=== PATIENT | female | born 1960 | race Caucasian/White ===

== ENCOUNTER 2017-01-11 15:19 | Observation (INO) | payer MEDICARE, OTHER ==
[~2017-01-11] VITALS: Ht 175.3 cm; Wt 120.0 kg
[~2017-01-11 15:19] MED LIST: ASPI81 PO; BENZ1TAB PO; LAMO100 PO; LEVO88TA2 PO; LEXA20TA PO; MOBI15TA PO; RANI150C PO; TRAZ50TA4 PO
[2017-01-11] MEDS ORDERED: SODIUM CHLORIDE 0.9% FLUSH 5 ML FLUSH IV FLUSH PRN (17:00)
[2017-01-11 17:05] VITALS: BP 143/61; PULSE 92; RESP 26; TEMP 97.6; O2SAT 98
--- NOTE | 2017-01-11 17:07 | PD ---
HPI Chief Complaint: altered mental status Time Seen by Provider: 16:40 Travel History International Travel<30 days: No Contact w/Intl Traveler<30days: No History of Present Illness HPI 56-year-old female presents with report of altered mental status. Patient per records has autism and mental retardation and is nonverbal but staff thought that she was acting different per report. Patient cannot provide me any history PFSH Past Medical History Narrative Medical By records Hx Anticoagulant Therapy: No Autoimmune Disease: No Anxiety: Yes Cardiovascular Problems: No Chemotherapy: No Cerebrovascular Accident: No Developmental Delay: Yes Diabetes: No Endocrine: No Genitourinary: Yes (INCONTINENT) Immune Disorder: No Musculoskeletal: No Neurologic: Yes (AUTISTIC, OCD) Psychiatric: Yes (AUTISM, OBSESSIVE COMPULSIVE) Respiratory: No Immunizations Current: Yes Thyroid Disease: Yes PNEUMOCCOCAL Vaccine (Year): 3 Past Surgical History Narrative Surgical By records Abdominal Surgery: Yes (CHOLECYSTECTOMY) Cholecystectomy: Yes Gynecologic Surgery: Yes (HYSTERECTOMY) Hysterectomy: Yes Oral Surgery: Yes Other Surgery: Yes Social History Narrative Social History By records Alcohol Use: No Tobacco Use: No Substance Use: No Allergies-Medications (Allergen,Severity, Reaction): Coded Allergies: orange (Unverified Allergy, Severe, Itching, 01/03/17) Uncoded Allergies: ORANGE JUICE (Allergy, Severe, Itching, 12/22/08) Reported Meds & Prescriptions Reported Meds & Active Scripts Active Reported Desyrel 50 Mg Tab (Trazodone Hcl) 50 Mg Tab 75 Mg PO HS Cogentin (Benztropine Mesylate) 1 Mg Tab 1 Mg PO HS Mobic (Meloxicam) 15 Mg Tab 15 Mg PO DAILY Aspirin 81 Mg Tab 81 Mg PO DAILY Levothyroxine 88 mcg (Levothyroxine Sodium) 88 Mcg Tab 88 Mcg PO DAILY Lamictal (Lamotrigine) 100 Mg Tab 100 Mg PO BID Lexapro (Escitalopram Oxalate) 20 Mg Tab 20 Mg PO DAILY Zantac (Ranitidine HCl) 150 Mg Cap 150 Mg PO HS Review of Systems ROS Limitations: Poor Historian Physical Exam Exam Limitations: Poor Historian Narrative GENERAL: Appears in no distress SKIN: Warm and dry. HEAD: atraumatic. EYES: No injection or drainage. Pupils equal ENT: No nasal drainage noted. NECK: Supple, trachea midline. CARDIOVASCULAR: Regular rate and rhythm RESPIRATORY: Breath sounds equal bilaterally at apices. No accessory muscle use. GASTROINTESTINAL: Abdomen soft, nondistended. NEUROLOGICAL: Eyes open, contractures noted, appears to try to state her name when asked but comes out more as a mumble question baseline Data Data Last Documented VS Vital Signs Date Time Temp Pulse Resp B/P (MAP) Pulse Ox O2 Delivery O2 Flow Rate FiO2 01/11/17 18:13 99 Room Air 01/11/17 17:05 97.6 92 26 143/61 (88) Orders Orders Electrocardiogram (01/11/17 16:46) Complete Blood Count With Diff (01/11/17 16:46) Comprehensive Metabolic Panel (01/11/17 16:46) Prothrombin Time / Inr (Pt) (01/11/17 16:46) Act Partial Throm Time (Ptt) (01/11/17 16:46) Urinalysis - C+S If Indicated (01/11/17 16:46) Ct Brain W/O Iv Contrast(Rout) (01/11/17 16:46) Blood Glucose (01/11/17 16:46) Ecg Monitoring (01/11/17 16:46) Iv Access Insert/Monitor (01/11/17 16:46) Oximetry (01/11/17 16:46) Sodium Chloride 0.9% Flush (Ns Flush) (01/11/17 17:00) Chest, Single Ap (01/11/17 ) Lactic Acid Sepsis Protocol (01/11/17 17:17) Blood Culture (01/11/17 17:17) Urine Culture (01/11/17 17:10) Ceftriaxone Inj (Rocephin Inj) (01/11/17 19:00) Labs Laboratory Tests Test 01/11/17 17:10 01/11/17 17:55 01/11/17 18:00 Urine Color YELLOW Urine Turbidity HAZY Urine pH 5.5 Urine Specific [place] 1.028 Urine Protein 100 mg/dL Urine Glucose (UA) NEG mg/dL Urine Ketones 10 mg/dL Urine Occult Blood MOD Urine Nitrite NEG Urine Bilirubin NEG Urine Urobilinogen 2.0 MG/DL Urine Leukocyte Esterase LARGE Urine RBC 7 /hpf Urine WBC 6 /hpf Urine Bacteria MOD /hpf Microscopic Urinalysis Comment CATH-CULTURE IND White Blood Count 10.7 TH/MM3 Red Blood Count 4.34 MIL/MM3 Hemoglobin 12.3 GM/DL Hematocrit 37.7 % Mean Corpuscular Volume 87.0 FL Mean Corpuscular Hemoglobin 28.3 PG Mean Corpuscular Hemoglobin Concent 32.6 % Red Cell Distribution Width 14.2 % Platelet Count 350 TH/MM3 Mean Platelet Volume 8.1 FL Neutrophils (%) (Auto) 91.5 % Lymphocytes (%) (Auto) 5.6 % Monocytes (%) (Auto) 2.2 % Eosinophils (%) (Auto) 0.0 % Basophils (%) (Auto) 0.7 % Neutrophils # (Auto) 9.8 TH/MM3 Lymphocytes # (Auto) 0.6 TH/MM3 Monocytes # (Auto) 0.2 TH/MM3 Eosinophils # (Auto) 0.0 TH/MM3 Basophils # (Auto) 0.1 TH/MM3 CBC Comment DIFF FINAL Differential Comment Alanine Aminotransferase (ALT/SGPT) 23 U/L Lactic Acid Level 1.1 mmol/L MDM Medical Decision Making Medical Screen Exam Complete: Yes Emergency Medical Condition: Yes Medical Record Reviewed: Yes (past history confirmed) Differential Diagnosis Hypoglycemia, UTI, hyponatremia, intercranial Narrative Course Will check altered mental status workup and if normal can return as she appears to be near baseline described but difficult to ascertain ED workup with urinary tract infection, antibiotics ordered and will be admitted for further care Physician Communication Physician Communication dr kuo to follow labs and admit Diagnosis Primary Impression: UTI (urinary tract infection) Qualified Codes: N39.0 - Urinary tract infection, site not specified Additional Impression: Altered mental status Qualified Codes: R41.82 - Altered mental status, unspecified Ivett Preston MD Jan 11, 2017 17:07
--- NOTE | 2017-01-11 17:44 | RADRPT ---
EXAM DATE/TIME: 01/11/2017 17:28 [facility] COMPARISON: No previous studies available for comparison. INDICATIONS : Chest palpitations. MEDICAL HISTORY : Autism. SURGICAL HISTORY : Cholecystectomy. Hysterectomy. ENCOUNTER: Initial ACUITY: 1 day PAIN SCORE: Non-responsive. LOCATION: Bilateral chest FINDINGS: A single portable frontal view the chest shows the patient obliqued towards the right. Hypoinflation noted. No discrete infiltrate or effusion. Heart normal size. Surgical clips within the right upper q uadrant. CONCLUSION: No acute disease. Bradford Maldonado Jr., MD on January 11, 2017 at 17:42 Board Certified Radiologist. This report was verified electronically.
[2017-01-11 17:46] LABS: BACTERIA, URINE MOD /hpf; BLOOD, URINE MOD (NEG); COMMENT (UR) CATH-CULTURE IND; CULTURE IF INDICATED CATH CULTURE IND; GLUCOSE,URINE NEG (NEG); KETONE, URINE 10 mg/dL (NEG); NITRITE,URINE NEG (NEG); PH, URINE 5.5 (5.0-8.5); URINE COLOR YELLOW (YELLW/STRAW)
--- NOTE | 2017-01-11 17:48 | RADRPT ---
EXAM DATE/TIME: 01/11/2017 17:38 [facility] COMPARISON: CT BRAIN W/O CONTRAST, December 29, 2014, 14:37. INDICATIONS : Altered mental status. RADIATION DOSE: 38.52 CTDIvol (mGy) MEDICAL HISTORY : Autistic SURGICAL HISTORY : Cholecystectomy. Hysterectomy. ENCOUNTER: Initial ACUITY: 1 day PAIN SCALE: 0/10 LOCATION: cranial TECHNIQUE: Multiple contiguous axial images were obtained of the head. Using automated exposure control and adj ustment of the mA and/or kV according to patient size, radiation dose was kept as low as reasonably a chievable to obtain optimal diagnostic quality images. DICOM format image data is available electro nically for review and comparison. FINDINGS: CEREBRUM: The ventricles are normal for age. No evidence of midline shift, mass lesion, hemorrhage or acute in farction. No extra-axial fluid collections are seen. POSTERIOR FOSSA: The cerebellum and brainstem are intact. The 4th ventricle is midline. The cerebellopontine angle i s unremarkable. EXTRACRANIAL: The visualized portion of the orbits is intact. SKULL: The calvaria is intact. No evidence of skull fracture. CONCLUSION: Normal examination. Miguel Angel Arreola MD on January 11, 2017 at 17:46 Board Certified Radiologist. This report was verified electronically.
[2017-01-11 18:13] VITALS: O2SAT 99
[2017-01-11 18:26] LABS: AUTOMATED NEUTROPHIL # 9.8 TH/MM3 (1.8-7.7); BASOPHIL # 0.1 TH/MM3 (0-0.2); BASOPHIL % 0.7 % (0.0-2.0); HEMATOCRIT 37.7 % (35.0-46.0); HEMO FLAGS DIFF FINAL; LYMPH % 5.6 % (9.0-44.0); LYMPHOCYTE # 0.6 TH/MM3 (1.0-4.8); MEAN CORPUSCULAR HEMOGLOBIN 28.3 PG (27.0-34.0); MEAN CORPUSCULAR HGB CONC 32.6 % (32.0-36.0); MONO % 2.2 % (0.0-8.0); NEUT % 91.5 % (16.0-70.0); PLATELET COUNT 350 TH/MM3 (150-450); RED BLOOD COUNT 4.34 MIL/MM3 (4.00-5.30); RED CELL DISTRIBUTION WIDTH 14.2 % (11.6-17.2); WHITE BLOOD COUNT 10.7 TH/MM3 (4.0-11.0)
[2017-01-11 18:57] LABS: ALT (GPT) 23 U/L (10-53)
[2017-01-11 18:59] LABS: ALKALINE PHOSPHATASE 101 U/L (45-117); TOTAL BILIRUBIN ADULT 0.3 MG/DL (0.2-1.0)
[2017-01-11] MEDS ORDERED: cefTRIAXone INJ 1,000 MG in SODIUM CHLORIDE 0.9% INJ 100 ML IV ONE (19:00)
[2017-01-11 19:03] LABS: ANION GAP 9 MEQ/L (5-15); AST (GOT) 48 U/L (15-37); BICARBONATE 24.2 MEQ/L (21.0-32.0); BLOOD UREA NITROGEN 13 MG/DL (7-18); CHLORIDE 105 MEQ/L (98-107); GLOMERULAR FILTRATION RATE 56 ML/MIN (>89); SODIUM (NA) 138 MEQ/L (136-145)
[2017-01-11 19:05] LABS: POTASSIUM 4.4 MEQ/L (3.5-5.1)
[2017-01-11 19:22] VITALS: BP 128/94; PULSE 87; RESP 16; O2SAT 94
--- NOTE | 2017-01-11 19:24 | PD ---
Physical Exam Date Seen by Provider: Jan 11, 2017 Time Seen by Provider: 19:17 Narrative The patient is a 56-year-old female with a history of autism who was evaluated by the previous physician, Dr. Preston. Please refer to initial history, physical , diagnostic evaluation, and treatment modality plan. The patient was signed out at 7 PM with CMP pending, previous physician recommends observation/ admission for increasing altered mental status with UTI. Data Data Last Documented VS Vital Signs Date Time Temp Pulse Resp B/P (MAP) Pulse Ox O2 Delivery O2 Flow Rate FiO2 01/11/17 18:13 99 Room Air 01/11/17 17:05 97.6 92 26 143/61 (88) Orders Orders Electrocardiogram (01/11/17 16:46) Complete Blood Count With Diff (01/11/17 16:46) Comprehensive Metabolic Panel (01/11/17 16:46) Prothrombin Time / Inr (Pt) (01/11/17 16:46) Act Partial Throm Time (Ptt) (01/11/17 16:46) Urinalysis - C+S If Indicated (01/11/17 16:46) Ct Brain W/O Iv Contrast(Rout) (01/11/17 16:46) Blood Glucose (01/11/17 16:46) Ecg Monitoring (01/11/17 16:46) Iv Access Insert/Monitor (01/11/17 16:46) Oximetry (01/11/17 16:46) Sodium Chloride 0.9% Flush (Ns Flush) (01/11/17 17:00) Chest, Single Ap (01/11/17 ) Lactic Acid Sepsis Protocol (01/11/17 17:17) Blood Culture (01/11/17 17:17) Urine Culture (01/11/17 17:10) Ceftriaxone Inj (Rocephin Inj) (01/11/17 19:00) Labs Laboratory Tests Test 01/11/17 17:10 01/11/17 17:55 01/11/17 18:00 Urine Color YELLOW Urine Turbidity HAZY Urine pH 5.5 Urine Specific [place] 1.028 Urine Protein 100 mg/dL Urine Glucose (UA) NEG mg/dL Urine Ketones 10 mg/dL Urine Occult Blood MOD Urine Nitrite NEG Urine Bilirubin NEG Urine Urobilinogen 2.0 MG/DL Urine Leukocyte Esterase LARGE Urine RBC 7 /hpf Urine WBC 6 /hpf Urine Bacteria MOD /hpf Microscopic Urinalysis Comment CATH-CULTURE IND White Blood Count 10.7 TH/MM3 Red Blood Count 4.34 MIL/MM3 Hemoglobin 12.3 GM/DL Hematocrit 37.7 % Mean Corpuscular Volume 87.0 FL Mean Corpuscular Hemoglobin 28.3 PG Mean Corpuscular Hemoglobin Concent 32.6 % Red Cell Distribution Width 14.2 % Platelet Count 350 TH/MM3 Mean Platelet Volume 8.1 FL Neutrophils (%) (Auto) 91.5 % Lymphocytes (%) (Auto) 5.6 % Monocytes (%) (Auto) 2.2 % Eosinophils (%) (Auto) 0.0 % Basophils (%) (Auto) 0.7 % Neutrophils # (Auto) 9.8 TH/MM3 Lymphocytes # (Auto) 0.6 TH/MM3 Monocytes # (Auto) 0.2 TH/MM3 Eosinophils # (Auto) 0.0 TH/MM3 Basophils # (Auto) 0.1 TH/MM3 CBC Comment DIFF FINAL Differential Comment Blood Urea Nitrogen 13 MG/DL Creatinine 1.02 MG/DL Random Glucose 138 MG/DL Total Protein 7.2 GM/DL Albumin 2.6 GM/DL Calcium Level 8.3 MG/DL Alkaline Phosphatase 101 U/L Aspartate Amino Transf (AST/SGOT) 48 U/L Alanine Aminotransferase (ALT/SGPT) 23 U/L Total Bilirubin 0.3 MG/DL Sodium Level 138 MEQ/L Potassium Level 4.4 MEQ/L Chloride Level 105 MEQ/L Carbon Dioxide Level 24.2 MEQ/L Anion Gap 9 MEQ/L Estimat Glomerular Filtration Rate 56 ML/MIN Lactic Acid Level 1.1 mmol/L [facility] Medical Record Reviewed: Yes Supervised Visit with RAPHAEL: No Interpretation(s) Last Impressions Head CT 01/11/17 1646 Signed Impressions: Service Date/Time: Wednesday, January 11, 2017 17:38 - CONCLUSION: Normal examination. Miguel Angel Arreola MD Chest X-Ray 01/11/17 0000 Signed Impressions: Service Date/Time: Wednesday, January 11, 2017 17:28 - CONCLUSION: No acute disease. Bradford Maldonado Jr., MD Laboratory Tests Test 01/11/17 17:10 01/11/17 17:55 01/11/17 18:00 Urine Color YELLOW Urine Turbidity HAZY Urine pH 5.5 Urine Specific [place] 1.028 Urine Protein 100 mg/dL Urine Glucose (UA) NEG mg/dL Urine Ketones 10 mg/dL Urine Occult Blood MOD Urine Nitrite NEG Urine Bilirubin NEG Urine Urobilinogen 2.0 MG/DL Urine Leukocyte Esterase LARGE Urine RBC 7 /hpf Urine WBC 6 /hpf Urine Bacteria MOD /hpf Microscopic Urinalysis Comment CATH-CULTURE IND White Blood Count 10.7 TH/MM3 Red Blood Count 4.34 MIL/MM3 Hemoglobin 12.3 GM/DL Hematocrit 37.7 % Mean Corpuscular Volume 87.0 FL Mean Corpuscular Hemoglobin 28.3 PG Mean Corpuscular Hemoglobin Concent 32.6 % Red Cell Distribution Width 14.2 % Platelet Count 350 TH/MM3 Mean Platelet Volume 8.1 FL Neutrophils (%) (Auto) 91.5 % Lymphocytes (%) (Auto) 5.6 % Monocytes (%) (Auto) 2.2 % Eosinophils (%) (Auto) 0.0 % Basophils (%) (Auto) 0.7 % Neutrophils # (Auto) 9.8 TH/MM3 Lymphocytes # (Auto) 0.6 TH/MM3 Monocytes # (Auto) 0.2 TH/MM3 Eosinophils # (Auto) 0.0 TH/MM3 Basophils # (Auto) 0.1 TH/MM3 CBC Comment DIFF FINAL Differential Comment Blood Urea Nitrogen 13 MG/DL Creatinine 1.02 MG/DL Random Glucose 138 MG/DL Total Protein 7.2 GM/DL Albumin 2.6 GM/DL Calcium Level 8.3 MG/DL Alkaline Phosphatase 101 U/L Aspartate Amino Transf (AST/SGOT) 48 U/L Alanine Aminotransferase (ALT/SGPT) 23 U/L Total Bilirubin 0.3 MG/DL Sodium Level 138 MEQ/L Potassium Level 4.4 MEQ/L Chloride Level 105 MEQ/L Carbon Dioxide Level 24.2 MEQ/L Anion Gap 9 MEQ/L Estimat Glomerular Filtration Rate 56 ML/MIN Lactic Acid Level 1.1 mmol/L Differential Diagnosis Differential diagnosis includes medication reaction, medication side effect, UTI , delirium, hyponatremia, intracranial hemorrhage, pneumonia, meningitis, encephalitis. Narrative Course The patient was initially evaluated by the previous physician, Dr. Preston. Please refer to the initial history, physical, diagnostic evaluation, and treatment modality plan. The patient's UA revealed 30 PVCs with leukocyte esterase, CT the brain and chest x-ray are unremarkable. The patient was administered Rocephin. We call the assisted living facility, there was no answer, we are unsure of what medications the patient was sedated with. According to paperwork the patient is normally cooperative, nonverbal, but was altered and slightly aggressive earlier today. Therefore, the patient will be 23 hour observation to the chest pain Center. Physician Communication Physician Communication I discussed the patient with Dr. Ramirez who agrees with 23 hour observation. Diagnosis Primary Impression: UTI (urinary tract infection) Qualified Codes: N39.0 - Urinary tract infection, site not specified Additional Impression: Altered mental status Qualified Codes: R41.82 - Altered mental status, unspecified Admitting Information Admitting Physician Requests: Observation Condition: Stable Marshall Mendoza MD Jan 11, 2017 19:24
[2017-01-11] MEDS ORDERED: ACETAMINOPHEN 325 MG TAB PO PRN (19:30)
[2017-01-11] MEDS ORDERED: ONDANSETRON HCL 4 MG/2 ML VIAL IVP PRN (19:30)
[2017-01-11] MEDS ORDERED: SODIUM CHLORIDE 0.9% FLUSH 10 ML FLUSH IV FLUSH PRN (19:30)
[2017-01-11] MEDS ORDERED: NALOXONE HCL 0.4 MG/ML AMP IV PRN (19:30)
[2017-01-11] MEDS ORDERED: LEVO125T4 PO (19:35)
[2017-01-11] MEDS ORDERED: ZYPR15TA PO (19:35)
[2017-01-11] MEDS ORDERED: GEOD60CA PO (19:35)
[2017-01-11] MEDS ORDERED: LAMI200T PO (19:35)
[2017-01-11] MEDS ORDERED: TRAZ50TA12 PO (19:35)
[2017-01-11] MEDS ORDERED: BENZ0.5T PO (19:35)
[2017-01-11] MEDS ORDERED: MOBI15TA PO (19:35)
[2017-01-11] MEDS ORDERED: ZANT300T PO (19:35)
[2017-01-11] MEDS ORDERED: LEXA20TA PO (19:35)
[2017-01-11] MEDS ORDERED: ASPI1TAB91 PO (19:35)
[2017-01-11 20:29] LABS: APTT (PATIENT) 24.1 SEC (24.3-30.1); PROTHROMBIN TIME - PATIENT 10.7 SEC (9.8-11.6)
[2017-01-11] MEDS: SODIUM CHLORIDE 0.9% FLUSH 10 ML FLUSH IV FLUSH SCH (22:05)
--- NOTE | 2017-01-11 23:26 | HHI.HP ---
[facility] Unknown Admission Diagnosis altered mental status, autism, UTI Diagnoses: (1) Altered mental status (2) UTI (urinary tract infection) Chief Complaint: Per [facility] paperwork: AMS, agitation requiring medication sedation Travel History International Travel<30 Days: No Contact w/Intl Traveler <30 Da: No Traveled to Known Affected Are: No History of Present Illness Written by Marti Rayo, acting as scribe for Dr. Ramirez on 01/11/17 at 23:26. Patient is seen in the CDU. She is alert with minimal eye contact and does not answer any questions. Per [facility] paperwork: AMS, agitation requiring medication sedation - uncertain what type of sedation was utilized. . Review of Systems ROS Limitations: Uncooperative Unable to obtain - patient would not communicate with examiner . Past Family Social History Past Medical History Per EMR and [facility] records: Autism Mental retardation OCD Anxiety Hypothyroidism . Past Surgical History Per EMR and [facility] records: Oral surgery Cholecystectomy Hysterectomy . . Reported Medications Reported Meds & Active Scripts Active Reported Geodon (Ziprasidone) 60 Mg Cap 60 Mg PO HS Trazodone (Trazodone HCl) 50 Mg Tab 75 Mg PO HS Zantac (Ranitidine HCl) 300 Mg Tab 300 Mg PO DAILY Zyprexa (Olanzapine) 15 Mg Tab 15 Mg PO HS Mobic (Meloxicam) 15 Mg Tab 15 Mg PO DAILY Levothyroxine (Levothyroxine Sodium) 125 Mcg Tab 125 Mcg PO DAILY Lamictal (Lamotrigine) 200 Mg Tab 200 Mg PO BID Lexapro (Escitalopram Oxalate) 20 Mg Tab 20 Mg PO DAILY Benztropine (Benztropine Mesylate) 0.5 Mg Tab 2 Mg PO BID Aspirin Adult Low Strength (Aspirin) 81 Mg Tabdr 81 Mg PO DAILY . Allergies: Coded Allergies: orange (Unverified Allergy, Severe, Itching, 01/03/17) Uncoded Allergies: ORANGE JUICE (Allergy, Severe, Itching, 12/22/08) Active Ordered Medications Current Medications IV Flush (NS Flush) 2 ml UNSCH PRN IV FLUSH FLUSH AFTER USING IV ACCESS Last administered on 01/11/17 19:28; Start 01/11/17 at 17:00; Stop 01/11/17 at 21:50 ; Status DC Ceftriaxone Sodium 1000 mg/ Sodium Chloride 100 ml @ 200 mls/hr ONCE ONCE IV Last administered on 01/11/17 19:27; Start 01/11/17 at 19:00; Stop 01/11/17 at 19:29; Status DC Sodium Chloride (NS Flush) 2 ml UNSCH PRN IV FLUSH FLUSH AFTER USING IV ACCESS ; Start 01/11/17 at 19:30 Sodium Chloride (NS Flush) 2 ml BID IV FLUSH Last administered on 01/11/17 22: 05; Start 01/11/17 at 21:00 Acetaminophen (Tylenol) 650 mg Q4H PRN PO TEMP > 100.4; Start 01/11/17 at 19:30 Ondansetron HCl (Zofran Inj) 4 mg Q6H PRN IVP NAUSEA OR VOMITING; Start at 19:30 Naloxone HCl (Narcan Inj) 0.4 mg UNSCH PRN IV SEE LABEL COMMENTS; Start at 19:30 . Family History Unable to obtain - patient would not communicate with examiner . Social History Unable to obtain - patient would not communicate with examiner . Physical Exam Vital Signs Vital Signs Date Time Temp Pulse Resp B/P (MAP) Pulse Ox O2 Delivery O2 Flow Rate FiO2 01/11/17 20:56 01/11/17 19:22 87 16 128/94 (105) 94 Room Air 01/11/17 18:13 99 Room Air 01/11/17 18:08 Room Air 01/11/17 17:05 97.6 92 26 143/61 (88) 98 Physical Exam GENERAL: This is an obese, non-interactive autistic patient, in no apparent distress. Does not make eye contact. SKIN: No rashes. Cool and dry. HEAD: Atraumatic. Normocephalic. EYES: No scleral icterus. No injection or drainage. ENT: Nose without bleeding, purulent drainage. NECK: Trachea midline. No JVD. CARDIOVASCULAR: Regular rate and rhythm without murmurs, gallops, or rubs. RESPIRATORY: Clear to auscultation. Breath sounds equal bilaterally. No wheezes , rales, or rhonchi. GASTROINTESTINAL: Abdomen soft, nondistended. No guarding. May have some pain with palpation - grimaced a little - difficult to evaluate given developmental impairments. MUSCULOSKELETAL: Extremities without clubbing, cyanosis. No calf tenderness. NEUROLOGICAL: Awake and alert. Unable to obtain complete exam as patient would not communicate with examiner and would not follow directions. . Laboratory Laboratory Tests Test 01/11/17 17:10 01/11/17 17:55 01/11/17 18:00 01/11/17 19:28 Urine Color YELLOW Urine Turbidity HAZY Urine pH 5.5 Urine Specific [place] 1.028 Urine Protein 100 Urine Glucose (UA) NEG Urine Ketones 10 Urine Occult Blood MOD Urine Nitrite NEG Urine Bilirubin NEG Urine Urobilinogen 2.0 Urine Leukocyte Esterase LARGE Urine RBC 7 Urine WBC 6 Urine Bacteria MOD Microscopic Urinalysis Comment CATH-CULTURE IND White Blood Count 10.7 Red Blood Count 4.34 Hemoglobin 12.3 Hematocrit 37.7 Mean Corpuscular Volume 87.0 Mean Corpuscular Hemoglobin 28.3 Mean Corpuscular Hemoglobin Concent 32.6 Red Cell Distribution Width 14.2 Platelet Count 350 Mean Platelet Volume 8.1 Neutrophils (%) (Auto) 91.5 Lymphocytes (%) (Auto) 5.6 Monocytes (%) (Auto) 2.2 Eosinophils (%) (Auto) 0.0 Basophils (%) (Auto) 0.7 Neutrophils # (Auto) 9.8 Lymphocytes # (Auto) 0.6 Monocytes # (Auto) 0.2 Eosinophils # (Auto) 0.0 Basophils # (Auto) 0.1 CBC Comment DIFF FINAL Differential Comment Blood Urea Nitrogen 13 Creatinine 1.02 Random Glucose 138 Total Protein 7.2 Albumin 2.6 Calcium Level 8.3 Alkaline Phosphatase 101 Aspartate Amino Transf (AST/SGOT) 48 Alanine Aminotransferase (ALT/SGPT) 23 Total Bilirubin 0.3 Sodium Level 138 Potassium Level 4.4 Chloride Level 105 Carbon Dioxide Level 24.2 Anion Gap 9 Estimat Glomerular Filtration Rate 56 Thyroid Stimulating Hormone 3rd Gen 0.202 Lactic Acid Level 1.1 Prothrombin Time 10.7 Prothromb Time International Ratio 1.0 Activated Partial Thromboplast Time 24.1 Date/Time Source Procedure Growth Status 01/11/17 18:00 Blood Peripheral Aerobic Blood Culture Pending Received 01/11/17 18:00 Blood Peripheral Anaerobic Blood Culture Pending Received 01/11/17 17:10 Urine Clean Catch Urine Culture Pending Worksheet Result Diagram: 01/11/17 1755 01/11/17 1755 Imaging Last Impressions Head CT 01/11/17 1646 Signed Impressions: Service Date/Time: Wednesday, January 11, 2017 17:38 - CONCLUSION: Normal examination. Miguel Angel Arreola MD Chest X-Ray 01/11/17 0000 Signed Impressions: Service Date/Time: Wednesday, January 11, 2017 17:28 - CONCLUSION: No acute disease. MD Onelia Hernandez Jr. VTE Risk Assessment Caprini VTE Risk Assessment: Mod/High Risk (score >= 2) Caprini Risk Assessment Model Point Value = 1 Point Value = 2 Point Value = 3 Point Value = 5 Age 41-60 Minor surgery BMI > 25 kg/m2 Swollen legs Varicose veins or History of unexplained or recurrent spontaneous Oral contraceptives or hormone replacement Sepsis (< 1 month) Serious lung disease, including pneumonia (< 1 month) Abnormal pulmonary function Acute myocardial infarction Congestive heart failure (< 1 month) History of inflammatory bowel disease Medical patient at bed rest Age 61-74 Arthroscopic surgery Major open surgery (> 45 min) Laparoscopic surgery (> 45 min) Malignancy Confined to bed (> 72 hours) Immobilizing plaster cast Central venous access Age >= 75 History of VTE Family history of VTE Factor V Leiden Prothrombin [id number] Lupus anticoagulant Anticardiolipin antibodies Elevated serum homocysteine Heparin-induced thrombocytopenia Other congenital or acquired thrombophilia Stroke (< 1 month) Elective arthroplasty Hip, pelvis, or leg fracture Acute spinal cord injury (< 1 month) Prophylaxis Regimen Total Risk Factor Score Risk Level Prophylaxis Regimen 0-1 Low Early ambulation 2 Moderate Order ONE of the following: *Sequential Compression Device (SCD) *Heparin 5000 units SQ BID 3-4 Higher Order ONE of the following medications: *Heparin 5000 units SQ TID *Enoxaparin/Lovenox 40 mg SQ daily (WT < 150 kg, CrCl > 30 mL/min) *Enoxaparin/Lovenox 30 mg SQ daily (WT < 150 kg, CrCl > 10-29 mL/min) *Enoxaparin/Lovenox 30 mg SQ BID (WT < 150 kg, CrCl > 30 mL/min) AND/OR *Sequential Compression Device (SCD) 5 or more Highest Order ONE of the following medications: *Heparin 5000 units SQ TID (Preferred with Epidurals) *Enoxaparin/Lovenox 40 mg SQ daily (WT < 150 kg, CrCl > 30 mL/min) *Enoxaparin/Lovenox 30 mg SQ daily (WT < 150 kg, CrCl > 10-29 mL/min) *Enoxaparin/Lovenox 30 mg SQ BID (WT < 150 kg, CrCl > 30 mL/min) AND *Sequential Compression Device (SCD) Assessment and Plan Problem List: (1) Altered mental status ICD Code: R41.82 - Altered mental status, unspecified Status: Acute (2) UTI (urinary tract infection) ICD Code: N39.0 - Urinary tract infection, site not specified Status: Acute (3) Autism ICD Code: F84.0 - Autistic disorder (4) OCD (obsessive compulsive disorder) ICD Code: F42.9 - Obsessive-compulsive disorder, unspecified Assessment and Plan AMS likely secondary to UTI - continue Ceftriaxone 1 gm q24 hours IV - Await urine culture results and adjust treatment as indicated - Blood cultures were obtained in ED- follow results - WBC within normal parameters and 10.7 with significant neutrophilia noted - negative CXR and head CT in ED Hypothyroidism - TSH checked and resulted at 0.202, will check free T4 - follow results - Continue home Synthroid Autism/OCD - continue home medications DVT prophylaxis - Lovenox 40 mg subq q24h . This note was transcribed by rosemary [Marti Rayo]. I, Dr. Darnell Ramirez personally performed the history, physical exam, and medical decision making; and confirmed the accuracy of the information in the transcribed note. Authenticated by Dr. Darnell Ramirez on 01/11/17 at 23:26. Discussed Condition With ER physician and RN . Problem Qualifiers (1) Altered mental status: Qualified Codes: R41.82 - Altered mental status, unspecified (2) UTI (urinary tract infection): Qualified Codes: N39.0 - Urinary tract infection, site not specified Marti Rayo Jan 11, 2017 23:26 Darnell Ramirez MD Jan 12, 2017 00:48
[2017-01-11 23:50] VITALS: BP 144/75; PULSE 78; RESP 18; TEMP 98.1; O2SAT 98
[2017-01-12 03:36] VITALS: BP 138/78; PULSE 75; RESP 18; TEMP 98; O2SAT 97
[2017-01-12 05:36] LABS: AUTOMATED NEUTROPHIL # 7.1 TH/MM3 (1.8-7.7); BASOPHIL % 0.4 % (0.0-2.0); HEMATOCRIT 37.6 % (35.0-46.0); HEMO FLAGS DIFF FINAL; LYMPH % 16.4 % (9.0-44.0); LYMPHOCYTE # 1.5 TH/MM3 (1.0-4.8); MEAN CELL VOLUME 87.4 FL (80.0-100.0); MEAN CORPUSCULAR HEMOGLOBIN 27.8 PG (27.0-34.0); MEAN CORPUSCULAR HGB CONC 31.9 % (32.0-36.0); MONO % 4.8 % (0.0-8.0); NEUT % 78.4 % (16.0-70.0); PLATELET COUNT 363 TH/MM3 (150-450); RED CELL DISTRIBUTION WIDTH 14.2 % (11.6-17.2)
[2017-01-12 05:54] LABS: ALT (GPT) 22 U/L (10-53); ANION GAP 7 MEQ/L (5-15); AST (GOT) 34 U/L (15-37); BICARBONATE 27.3 MEQ/L (21.0-32.0); BLOOD UREA NITROGEN 15 MG/DL (7-18); CHLORIDE 105 MEQ/L (98-107); GLOMERULAR FILTRATION RATE 60 ML/MIN (>89); POTASSIUM 4.2 MEQ/L (3.5-5.1); SODIUM (NA) 139 MEQ/L (136-145)
[2017-01-12 05:57] LABS: ALKALINE PHOSPHATASE 100 U/L (45-117); TOTAL BILIRUBIN ADULT 0.3 MG/DL (0.2-1.0)
[2017-01-12] MEDS ORDERED: LEVOTHYROXINE SODIUM 125 MCG TAB PO SCH (06:00)
[2017-01-12 07:42] VITALS: BP 142/72; PULSE 97; RESP 17; TEMP 98.1; O2SAT 97
--- NOTE | 2017-01-12 08:27 | EKG ---
Date Performed: 01/11/2017 Time Performed: 19:55:48 PTAGE: 56 years EKG: Sinus rhythm WITH FIRST DEGREE AV BLOCK LOW QRS VOLTAGE IN PRECORDIAL LEADS ABNORMAL ECG PREVIOUS TRACING : 01/11/2017 18.24 No significant change from previous tracing noted. DOCTOR: Osmani Lopez Interpretating Date/Time 01/12/2017 08:25:59
--- NOTE | 2017-01-12 08:30 | EKG ---
Date Performed: 01/11/2017 Time Performed: 18:24:54 PTAGE: 56 years EKG: Sinus rhythm LOW QRS VOLTAGE POSSIBLE INFERIOR MYOCARDIAL INFARCTION ABNORMAL ECG PREVIOUS TRACING : 04/12/2009 07.49 Compared to previous tracing, possible inferior infarction pattern is now evident. DOCTOR: Osmani Lopez Interpretating Date/Time 01/12/2017 08:28:38
--- NOTE | 2017-01-12 09:28 | HHI.PR ---
Subjective Remarks Follow-up for altered mental status. Discussed with RN, no acute issues overnight, no agitation. The patient is awake and alert. She only responds yes and no to questions, but does seem to respond appropriately. She denies any complaints. She states that she has been eating. She denies any pain. Objective Vitals Vital Signs Date Time Temp Pulse Resp B/P (MAP) Pulse Ox O2 Delivery O2 Flow Rate FiO2 01/12/17 07:42 98.1 97 17 142/72 (95) 97 01/12/17 03:36 98.0 75 18 138/78 (98) 97 01/11/17 23:50 98.1 78 18 144/75 (98) 98 01/11/17 20:56 01/11/17 19:22 87 16 128/94 (105) 94 Room Air 01/11/17 18:13 99 Room Air 01/11/17 18:08 Room Air 01/11/17 17:05 97.6 92 26 143/61 (88) 98 I/O 01/11/17 01/11/17 01/11/17 01/12/17 01/12/17 01/12/17 07:00 15:00 23:00 07:00 15:00 23:00 Intake Total 480 ml 240 ml Balance 480 ml 240 ml Intake Oral 480 ml 240 ml # Voids 1 Result Diagram: 01/12/17 0444 01/12/17 0444 Imaging Last Impressions Head CT 01/11/17 1646 Signed Impressions: Service Date/Time: Wednesday, January 11, 2017 17:38 - CONCLUSION: Normal examination. Miguel Angel Arreola MD Chest X-Ray 01/11/17 0000 Signed Impressions: Service Date/Time: Wednesday, January 11, 2017 17:28 - CONCLUSION: No acute disease. Bradford Maldonado Jr., MD Objective Remarks GENERAL: Well-developed well-nourished obese. In no acute distress. SKIN: Warm and dry. No lesions noted. HEENT: Normocephalic. Pupils equal and round. Mucous membranes pink and moist. CARDIOVASCULAR: Regular rate and rhythm. No murmur appreciated. RESPIRATORY: No accessory muscle use. Clear to auscultation. Breath sounds equal bilaterally. GASTROINTESTINAL: Abdomen soft, non-tender, nondistended. Bowel sounds x4. MUSCULOSKELETAL: No obvious deformities. No clubbing or cyanosis. No edema. NEUROLOGICAL: Awake and alert. No focal neurological deficits. Moves upper and lower extremities spontaneously. Normal speech, but only communicates with yes and no answers. PSYCHIATRIC: Delayed mood and affect; insight and judgment poor. A/P Problem List: (1) Altered mental status ICD Code: R41.82 - Altered mental status, unspecified Status: Resolved (2) UTI (urinary tract infection) ICD Code: N39.0 - Urinary tract infection, site not specified Status: Acute (3) Autism ICD Code: F84.0 - Autistic disorder Status: Chronic (4) OCD (obsessive compulsive disorder) ICD Code: F42.9 - Obsessive-compulsive disorder, unspecified Status: Chronic Assessment and Plan 56-year-old female with past medical history of autism, mental retardation, OCD , anxiety, hypothyroidism who was sent from [facility] for altered mental status and agitation Acute metabolic encephalopathy: Patient with baseline neuro and psych deficits. Suspected acute worsening due to UTI. No agitation overnight. -Continue treatment for UTI as below UTI: UA with evidence of UTI. Afebrile with no leukocytosis. -Continue empiric IV Rocephin and follow-up urine culture Hypothyroidism: TSH is low at 0.202 and free T4 is high at 1.7 -Decrease levothyroxine to 100 g daily Autism/OCD/mental retardation -Continue home Lamictal, Lexapro, trazodone, Zyprexa, Geodon, Cogentin -If further episodes of agitation occur, consider psych consult for medication adjustment, but patient's agitation seems to have resolved DVT prophylaxis: Lovenox Discharge Planning Follow-up results of urine culture and depending upon results possible discharge planning if agitation remains resolved. Problem Qualifiers (1) Altered mental status: Qualified Codes: R41.82 - Altered mental status, unspecified (2) UTI (urinary tract infection): Qualified Codes: N39.0 - Urinary tract infection, site not specified Piotr Oliver Jan 12, 2017 09:28
[2017-01-12] MEDS: BENZTROPINE MESYLATE 1 MG TAB PO SCH ×2 (09:54→21:18)
[2017-01-12] MEDS: ESCITALOPRAM OXALATE 20 MG TAB PO SCH (09:54)
[2017-01-12] MEDS: SODIUM CHLORIDE 0.9% FLUSH 10 ML FLUSH IV FLUSH SCH ×2 (09:54→21:17)
[2017-01-12] MEDS: ASPIRIN EC 81 MG TABEC PO SCH (09:55)
[2017-01-12] MEDS: ENOXAPARIN SODIUM 40 MG/0.4 ML SYRINGE SQ SCH (09:55)
[2017-01-12] MEDS: lamoTRIgine 100 MG TAB PO SCH ×2 (09:55→21:20)
[2017-01-12 11:41] VITALS: BP 143/69; PULSE 95; RESP 18; TEMP 98.2; O2SAT 95
[2017-01-12] MEDS ORDERED: LORazepam 2 MG/ML VIAL IV PUSH PRN (13:00)
[2017-01-12] MEDS ORDERED: cefTRIAXone INJ 1,000 MG in SODIUM CHLORIDE 0.9% INJ 100 ML IV SCH (19:00)
[2017-01-12 19:29] VITALS: BP 115/83; PULSE 90; RESP 19; TEMP 98.8; O2SAT 95
[2017-01-12] MEDS ORDERED: traZODone HCL 50 MG TAB PO SCH (21:00)
[2017-01-12] MEDS ORDERED: ZIPRASIDONE HCL 60 MG CAP PO SCH (21:00)
[2017-01-12] MEDS ORDERED: FAMOTIDINE 20 MG TAB PO SCH (21:00)
[2017-01-13] VITALS: BP 161/82; PULSE 85; RESP 18; TEMP 98.9; O2SAT 92
[2017-01-13 03:25] VITALS: BP 130/74; PULSE 68; RESP 18; TEMP 98; O2SAT 97
[2017-01-13] MEDS ORDERED: LEVOTHYROXINE SODIUM 100 MCG TAB PO SCH (06:00)
--- NOTE | 2017-01-13 08:54 | HHI.PR ---
Subjective Remarks Follow-up for UTI. The patient continues to deny any complaints today. Discussed with RN, and no episodes of agitation throughout admission. Objective Vitals Vital Signs Date Time Temp Pulse Resp B/P (MAP) Pulse Ox O2 Delivery O2 Flow Rate FiO2 01/13/17 03:25 98.0 68 18 130/74 (92) 97 01/13/17 00:00 98.9 85 18 161/82 (108) 92 01/12/17 19:29 98.8 90 19 115/83 (94) 95 01/12/17 11:41 98.2 95 18 143/69 (93) 95 I/O 01/12/17 01/12/17 01/12/17 01/13/17 01/13/17 01/13/17 06:59 14:59 22:59 06:59 14:59 22:59 Intake Total 240 ml 620 ml Balance 240 ml 620 ml Intake Oral 240 ml 620 ml # Voids 5 Result Diagram: 01/12/17 0444 01/12/17 0444 Imaging Last Impressions Head CT 01/11/17 1646 Signed Impressions: Service Date/Time: Wednesday, January 11, 2017 17:38 - CONCLUSION: Normal examination. Miguel Angel Arreola MD Chest X-Ray 01/11/17 0000 Signed Impressions: Service Date/Time: Wednesday, January 11, 2017 17:28 - CONCLUSION: No acute disease. Bradford Maldonado Jr., MD Objective Remarks GENERAL: Well-developed well-nourished obese. In no acute distress. SKIN: Warm and dry. No lesions noted. HEENT: Normocephalic. Pupils equal and round. Mucous membranes pink and moist. CARDIOVASCULAR: Regular rate and rhythm. No murmur appreciated. RESPIRATORY: No accessory muscle use. Clear to auscultation. Breath sounds equal bilaterally. GASTROINTESTINAL: Abdomen soft, non-tender, nondistended. Bowel sounds x4. MUSCULOSKELETAL: No obvious deformities. No clubbing or cyanosis. No edema. NEUROLOGICAL: Awake and alert. No focal neurological deficits. Moves upper and lower extremities spontaneously. Normal speech, but only communicates with yes and no answers. PSYCHIATRIC: Delayed mood and affect; insight and judgment poor. A/P Problem List: (1) Altered mental status ICD Code: R41.82 - Altered mental status, unspecified Status: Resolved (2) UTI (urinary tract infection) ICD Code: N39.0 - Urinary tract infection, site not specified Status: Acute (3) Autism ICD Code: F84.0 - Autistic disorder Status: Chronic (4) OCD (obsessive compulsive disorder) ICD Code: F42.9 - Obsessive-compulsive disorder, unspecified Status: Chronic Assessment and Plan 56-year-old female with past medical history of autism, mental retardation, OCD , anxiety, hypothyroidism who was sent from [facility] for altered mental status and agitation Acute metabolic encephalopathy: Patient with baseline neuro and psych deficits. Suspected acute worsening due to UTI. No episodes of agitation throughout admission after treating UTI. Resolved. -Continue treatment for UTI as below UTI: UA with evidence of UTI. Afebrile with no leukocytosis. Urine culture growing gram-negative rods. -Received empiric IV Rocephin 2, continue on oral Macrobid -Follow up with PCP for final urine culture and sensitivity Hypothyroidism: TSH is low at 0.202 and free T4 is high at 1.7 -Decreased levothyroxine to 100 g daily Autism/OCD/mental retardation: Chronic, stable. -Continue home Lamictal, Lexapro, trazodone, Zyprexa, Geodon, Cogentin DVT prophylaxis: Lovenox Discharge Planning Discharge patient back to [facility] Condition on discharge: Improved Heart healthy Diet as tolerated Regular activity Rx written: Macrobid, levothyroxine Follow-up with primary care physician Problem Qualifiers (1) Altered mental status: Qualified Codes: R41.82 - Altered mental status, unspecified (2) UTI (urinary tract infection): Qualified Codes: N39.0 - Urinary tract infection, site not specified Piotr Oliver Jan 13, 2017 08:54
[2017-01-13] MEDS ORDERED: NITR100C4 PO (08:58)
[2017-01-13] MEDS ORDERED: NITROFURANTOIN MONOHYD MACROCR 100 MG CAP PO SCH (09:00)
[2017-01-13] MEDS ORDERED: LEVO.1 PO (09:08)
[2017-01-13] MEDS: SODIUM CHLORIDE 0.9% FLUSH 10 ML FLUSH IV FLUSH SCH (09:30)
[2017-01-13] MEDS: BENZTROPINE MESYLATE 1 MG TAB PO SCH (09:31)
[2017-01-13] MEDS: ENOXAPARIN SODIUM 40 MG/0.4 ML SYRINGE SQ SCH (09:31)
[2017-01-13] MEDS: lamoTRIgine 100 MG TAB PO SCH (09:31)
[2017-01-13] MEDS: ESCITALOPRAM OXALATE 20 MG TAB PO SCH (09:31)
[2017-01-13] MEDS: ASPIRIN EC 81 MG TABEC PO SCH (09:31)
[2017-01-13 09:51] VITALS: BP 143/80; PULSE 94; RESP 19; TEMP 99; O2SAT 95
== END 2017-01-13 12:32 ==
LOC: NEPE 15:19 → NEDA 19:25 → NEPFCDU 21:39
PROVIDERS: ADMIT Family Medicine; ATTEND Family Medicine
DX: R41.82 Altered mental status, unspecified (principal); N39.0 Urinary tract infection, site not specified; B96.20 Unspecified Escherichia coli [E. coli] as the cause of diseases classified elsewhere; I44.0 Atrioventricular block, first degree; R94.31 Abnormal electrocardiogram [ECG] [EKG]; E03.9 Hypothyroidism, unspecified; G93.41 Metabolic encephalopathy; F84.0 Autistic disorder; F42.9 Obsessive-compulsive disorder, unspecified; F79 Unspecified intellectual disabilities; F41.9 Anxiety disorder, unspecified; Z79.899 Other long term (current) drug therapy; Z90.710 Acquired absence of both cervix and uterus; Z90.49 Acquired absence of other specified parts of digestive tract; Z79.82 Long term (current) use of aspirin
CPT/HCPCS: 70450; 71010; 80053; 81001; 83605; 84439; 84443; 85025; 85610; 85730; 87040; 87077; 87086; 87186; 93005; 96365; 96366; 96372; 99285; G0378; J0696; J1650; P9612

== ENCOUNTER 2017-02-21 10:19 | Emergency (ER) | payer MEDICARE, OTHER ==
[~2017-02-21] VITALS: Ht 162.6 cm; Wt 113.0 kg
[~2017-02-21 10:19] MED LIST changes: +ASPI1TAB91 PO; -ASPI81 PO; +BENZ0.5T PO; -BENZ1TAB PO; +GEOD60CA PO; +LAMI200T PO; -LAMO100 PO; +LEVO.1 PO; -LEVO88TA2 PO; +NITR100C4 PO; -RANI150C PO; +TRAZ50TA12 PO; -TRAZ50TA4 PO; +ZANT300T PO; +ZYPR15TA PO
[2017-02-21 10:27] VITALS: BP 138/93; PULSE 97; RESP 18; TEMP 97.5; O2SAT 96
--- NOTE | 2017-02-21 10:36 | PD ---
HPI Chief Complaint: Fall Time Seen by Provider: 10:35 Travel History International Travel<30 days: No Contact w/Intl Traveler<30days: No Traveled to known affect area: No History of Present Illness HPI 56-year-old female who has baseline autism and MR tripped and fell today. Her snf staff witnessed this. 911 was called given facial injury. She was brought in by EMS. Patient has a large forehead flap laceration and nose bridge laceration that was initially bleeding actively. There was pressure dressing applied so when I saw the wound the bleeding was controlled. Patient is awake but mostly nonverbal. Vital signs are otherwise stable. Tetanus status is unknown. Patient is unable to give any history. PFSH Past Medical History Narrative Medical List of her past medical, surgical, social and family history is reviewed from the nursing note. Hx Anticoagulant Therapy: No Autoimmune Disease: No Anxiety: Yes Cardiovascular Problems: No Chemotherapy: No Cerebrovascular Accident: No Developmental Delay: Yes Diabetes: No Diminished Hearing: No (PT NON-VERBAL) Endocrine: No Genitourinary: Yes (INCONTINENT) Immune Disorder: No Implanted Vascular Access Dvce: No Musculoskeletal: No Neurologic: Yes (AUTISTIC, OCD) Psychiatric: Yes (AUTISM, OBSESSIVE COMPULSIVE) Respiratory: No Immunizations Current: Yes Thyroid Disease: Yes PNEUMOCCOCAL Vaccine (Year): 3 Past Surgical History Abdominal Surgery: Yes (CHOLECYSTECTOMY) Cholecystectomy: Yes Gynecologic Surgery: Yes (HYSTERECTOMY) Hysterectomy: Yes Oral Surgery: Yes Other Surgery: Yes Social History Alcohol Use: No Tobacco Use: No Substance Use: No (PATIENT NON VERBAL, HX AUTISM.) Allergies-Medications (Allergen,Severity, Reaction): Coded Allergies: orange (Unverified Allergy, Severe, Itching, 02/21/17) Uncoded Allergies: ORANGE JUICE (Allergy, Severe, Itching, 12/22/08) Comments List of her allergies reviewed from the nursing note. Reported Meds & Prescriptions Reported Meds & Active Scripts Active Bacitracin Topical 500 Unit/Gm Oint 1 Applic TOPICAL BID Keflex (Cephalexin) 500 Mg Cap 500 Mg PO Q12H 10 Days Reported Levothyroxine (Levothyroxine Sodium) 125 Mcg Tab 125 Mcg PO DAILY Geodon (Ziprasidone) 60 Mg Cap 60 Mg PO HS Trazodone (Trazodone HCl) 50 Mg Tab 75 Mg PO HS Zantac (Ranitidine HCl) 300 Mg Tab 300 Mg PO DAILY Zyprexa (Olanzapine) 15 Mg Tab 15 Mg PO HS Mobic (Meloxicam) 15 Mg Tab 15 Mg PO DAILY Lamictal (Lamotrigine) 200 Mg Tab 200 Mg PO BID Lexapro (Escitalopram Oxalate) 20 Mg Tab 20 Mg PO DAILY Benztropine (Benztropine Mesylate) 0.5 Mg Tab 2 Mg PO BID Aspirin Adult Low Strength (Aspirin) 81 Mg Tabdr 81 Mg PO DAILY Narrative Medication List of her home medications reviewed from the nursing note. Review of Systems Except as stated in HPI: all other systems reviewed are Neg Physical Exam Narrative GENERAL: Awake, nonverbal, obese, moderate distress SKIN: Focused skin assessment warm/dry. Large 6-7 cm forehead laceration that has jagged and zigzag edges. A 2 cm nasal bridge laceration HEAD: Atraumatic. Normocephalic. EYES: Pupils equal and round. No scleral icterus. No injection or drainage. ENT: No nasal bleeding or discharge. Mucous membranes pink and moist. NECK: Trachea midline. No JVD. CARDIOVASCULAR: Regular rate and rhythm. No murmur appreciated. RESPIRATORY: No accessory muscle use. Clear to auscultation. Breath sounds equal bilaterally. GASTROINTESTINAL: Abdomen soft, non-tender, nondistended. Hepatic and splenic margins not palpable. MUSCULOSKELETAL: No obvious deformities. No clubbing. No cyanosis. No edema. NEUROLOGICAL: Awake and alert. No obvious cranial nerve deficits. Motor grossly within normal limits. Nonverbal PSYCHIATRIC: Appropriate mood and affect; insight and judgment normal. Data Data Last Documented VS Vital Signs Date Time Temp Pulse Resp B/P (MAP) Pulse Ox O2 Delivery O2 Flow Rate FiO2 02/21/17 14:09 90 17 126/87 (100) 97 02/21/17 10:[address] Brain W/O Iv Contrast(Rout) (02/21/17 ) Ct Facial Bones W/O Iv Cont (02/21/17 ) Tetanus/Diphtheria Tox Adult (Tetanus/Di (02/21/17 10:45) Lidocai-Epi 2%-1:100,000 Inj (Xylocaine- (02/21/17 11:15) Lidocai-Epi 2%-1:100,000 Inj (Xylocaine- (02/21/17 11:24) Cephalexin (Keflex) (02/21/17 12:00) [facility] Medical Decision Making Medical Screen Exam Complete: Yes Emergency Medical Condition: Yes Medical Record Reviewed: Yes Differential Diagnosis Intracranial bleed, skull fracture, facial fracture, facial laceration Narrative Course 11:[address] scan of the head and face and negative. The PA along with my medical student are repairing the laceration. Please refer to his procedure note for that. Patient was given IM tetanus. She'll get by mouth Keflex and discharge home on prescription for Keflex. Procedures EKG Prior to Arrival: No Diagnosis Primary Impression: Fall Qualified Codes: W19.XXXA - Unspecified fall, initial encounter Additional Impressions: Facial laceration Qualified Codes: S01.81XA - Laceration without foreign body of other part of head, initial encounter Nasal laceration Qualified Codes: S01.21XA - Laceration without foreign body of nose, initial encounter Referrals: Primary Care Physician Additional Instructions: Please return to the ER if the condition worsens or any other new concerns. Keep the wound clean and dry. Apply the bacitracin ointment twice a day until the stitches come out. The stitches need to be taken out in 7-10 days. You could return to the emergency room or to your primary care's office for that. Take the medication as per the prescription direction. Med/Other Pt SpecificInfo: Prescription(s) given Scripts Bacitracin Topical (Bacitracin Topical) 500 Unit/Gm Oint 1 APPLIC TOPICAL BID for Infection, #30 GM 0 Refills Prov: Cuca Brown MD 02/21/17 Cephalexin (Keflex) 500 Mg Cap 500 MG PO Q12H for Infection for 10 Days, #20 CAP 0 Refills Prov: Cuca Brown MD 02/21/17 Disposition: 01 DISCHARGE HOME Condition: Stable Cuca Brown MD Feb 21, 2017 10:36
[2017-02-21] MEDS ORDERED: LEVO125T4 PO (10:40)
[2017-02-21] MEDS ORDERED: TETANUS/DIPHTHERIA TOXOID ADULT 0.5 ML VIAL IM ONE (10:45)
[2017-02-21] MEDS ORDERED: LIDOCAINE 2%/EPINEPHrine 1:100,000 30ML MDV INFIL ONE (11:15)
--- NOTE | 2017-02-21 11:17 | RADRPT ---
EXAM DATE/TIME: 02/21/2017 11:01 [facility] COMPARISON: CT BRAIN W/O CONTRAST, January 11, 2017, 17:38. INDICATIONS : Trauma, trip and fall. Laceration to forehead and nose. RADIATION DOSE: 45.83 CTDIvol (mGy) MEDICAL HISTORY : None SURGICAL HISTORY : Cholecystectomy. Hysterectomy. ENCOUNTER: Initial ACUITY: 1 day PAIN SCALE: 5/10 LOCATION: cranial TECHNIQUE: Multiple contiguous axial images were obtained of the head. Using automated exposure control and adj ustment of the mA and/or kV according to patient size, radiation dose was kept as low as reasonably a chievable to obtain optimal diagnostic quality images. DICOM format image data is available electro nically for review and comparison. FINDINGS: CEREBRUM: The ventricles are normal for age. No evidence of midline shift, mass lesion, hemorrhage or acute in farction. No extra-axial fluid collections are seen. POSTERIOR FOSSA: The cerebellum and brainstem are intact. The 4th ventricle is midline. The cerebellopontine angle i s unremarkable. EXTRACRANIAL: The visualized portion of the orbits is intact. Soft tissue defect overlying the mid frontal scalp re gion SKULL: The calvaria is intact. No evidence of skull fracture. CONCLUSION: 1. No acute intracranial abnormality noted. Vinicio Yu MD on February 21, 2017 at 11:13 Board Certified Radiologist. This report was verified electronically.
--- NOTE | 2017-02-21 11:22 | RADRPT ---
EXAM DATE/TIME: 02/21/2017 11:01 [facility] COMPARISON: CT FACIAL BONES W/O CONTRAST, December 29, 2014, 14:37. INDICATIONS : Trauma, trip and fall. Laceration to forehead and nose. RADIATION DOSE: 36.65 CTDIvol (mGy) MEDICAL HISTORY : None SURGICAL HISTORY : Cholecystectomy. Hysterectomy. ENCOUNTER: Initial ACUITY: 1 day PAIN SCORE: 7/10 LOCATION: facial TECHNIQUE: Volumetric scanning of the facial bones was performed. Using automated exposure control and adjustme nt of the mA and/or kV according to patient size, radiation dose was kept as low as reasonably achiev able to obtain optimal diagnostic quality images. DICOM format image data is available electronicall y for review and comparison. FINDINGS: ORBITS: The orbital and infraorbital osseous structures are intact. The retroconal structures have a normal configuration. No radiopaque foreign bodies are seen. NASAL BONE: The nasal bone and maxillary spine are intact ZYGOMATIC ARCHES: Symmetric without evidence of fracture. SINUSES: The maxillary, ethmoid and frontal sinuses are intact. No air-fluid levels seen. NASAL CAVITY: The nasal septum is intact and midline. The lacrimal ducts are intact. SOFT TISSUES: Large laceration involving the mid frontal scalp region. INTRACRANIAL: No intracranial air seen. CRIBIFORM PLATE: Grossly intact. CONCLUSION: 1. No acute facial bone fractures. Vinicio Yu MD on February 21, 2017 at 11:18 Board Certified Radiologist. This report was verified electronically.
[2017-02-21] MEDS ORDERED: LIDOCAINE 2%/EPINEPHrine 1:100,000 20ML MDV ONE (11:24)
[2017-02-21] MEDS ORDERED: CEPH-460 PO (11:53)
[2017-02-21] MEDS ORDERED: BACI500O9 TOPICAL (11:53)
[2017-02-21] MEDS ORDERED: CEPHALEXIN MONOHYDRATE 250 MG CAP PO ONE (12:00)
--- NOTE | 2017-02-21 12:27 | PD ---
Physical Exam Date Seen by Provider: Feb 21, 2017 Time Seen by Provider: 12:22 Narrative I was asked to repair 2 facial lacerations on this patient. #1 laceration is to the forehead measuring 8 cm and is regular. #2 laceration is to the bridge of the nose measuring 2 cm. Both are full thickness flap-like lesions. Data Data Last Documented VS Vital Signs Date Time Temp Pulse Resp B/P (MAP) Pulse Ox O2 Delivery O2 Flow Rate FiO2 02/21/17 10:27 97.5 97 18 138/93 (108) [address] Brain W/O Iv Contrast(Rout) (02/21/17 ) Ct Facial Bones W/O Iv Cont (02/21/17 ) Tetanus/Diphtheria Tox Adult (Tetanus/Di (02/21/17 10:45) Lidocai-Epi 2%-1:100,000 Inj (Xylocaine- (02/21/17 11:15) Lidocai-Epi 2%-1:100,000 Inj (Xylocaine- (02/21/17 11:24) Cephalexin (Keflex) (02/21/17 12:00) MDM Medical Record Reviewed: Yes Supervised Visit with RAPHAEL: Yes Procedures Procedure Narrative LACERATION #1 LOCATION: Medial forehead LENGTH: 8 cm NUMBER OF STITCHES/GIOVANNA: 4 interrupted vertical mattress, 7 interrupted horizontal mattress, and 10 simple interrupted REPAIR: The area of the laceration was prepped with Betadine and sterilely draped. The laceration was infiltrated with 2% lidocaine with epi. The wound was copiously irrigated and explored without evidence of foreign body, tendon injury or neurovascular injury. The wound was closed using 5-0 Prolene. This was a single layer repair. Antibiotic ointment was applied. The patient was advised to keep the wound clean and dry. Patient tolerated the procedure well. LACERATION #2 LOCATION: Upper bridge of nose LENGTH: 2 cm NUMBER OF STITCHES/GIOVANNA: 1 vertical mattress, 2 interrupted horizontal mattress, one simple suture REPAIR: The area of the laceration was prepped with Betadine and sterilely draped. The laceration was infiltrated with 2% lidocaine with epinephrine. The wound was copiously irrigated and explored without evidence of foreign body , tendon injury or neurovascular injury. The wound was closed using 5-0 Prolene. This was a single layer repair. Antibiotic ointment was applied. The patient was advised to keep the wound clean and dry. Patient tolerated the procedure well. Diagnosis Primary Impression: Fall Qualified Codes: W19.XXXA - Unspecified fall, initial encounter Additional Impressions: Nasal laceration Qualified Codes: S01.21XA - Laceration without foreign body of nose, initial encounter Facial laceration Qualified Codes: S01.81XA - Laceration without foreign body of other part of head, initial encounter Referrals: Primary Care Physician Patient Instructions: General Instructions Departure Forms: Tests/Procedures Additional Instruction: Please return to the ER if the condition worsens or any other new concerns. Keep the wound clean and dry. Apply the bacitracin ointment twice a day until the stitches come out. The stitches need to be taken out in 7-10 days. You could return to the emergency room or to your primary care's office for that. Take the medication as per the prescription direction. Scripts Bacitracin Topical (Bacitracin Topical) 500 Unit/Gm Oint 1 APPLIC TOPICAL BID for Infection, #30 GM 0 Refills Prov: Cuca Brown MD 02/21/17 Cephalexin (Keflex) 500 Mg Cap 500 MG PO Q12H for Infection for 10 Days, #20 CAP 0 Refills Prov: Cuca Brown MD 02/21/17 Disposition: 01 DISCHARGE HOME Condition: Stable Asaf Eagle Feb 21, 2017 12:27
[2017-02-21 14:09] VITALS: BP 126/87
== END 2017-02-21 14:11 | disposition home or self-care (01) ==
LOC: NEPE 10:19
DX: S01.81XA Laceration without foreign body of other part of head, initial encounter (principal); S01.21XA Laceration without foreign body of nose, initial encounter; W01.0XXA Fall on same level from slipping, tripping and stumbling without subsequent striking against object, initial encounter; Z23 Encounter for immunization
CPT/HCPCS: 12015; 70450; 70486; 90471; 90714

== ENCOUNTER 2017-05-12 08:44 | Inpatient (IN) | payer MEDICARE, OTHER ==
[~2017-05-12] VITALS: Ht 162.6 cm; Wt 120.0 kg
[2017-05-12] VITALS (7 sets, daily range): BP systolic 134–185; BP diastolic 72–97; PULSE 82–95; RESP 18–24; TEMP 98.2–100; O2SAT 89–97
[~2017-05-12 08:44] MED LIST changes: -ASPI1TAB91 PO; +ASPI81TA16 PO; +BACI500O9 TOPICAL; +CEPH-460 PO; -LEVO.1 PO; +LEVO125T4 PO; -NITR100C4 PO
[2017-05-12] MEDS ORDERED: SODIUM CHLORIDE 0.9% FLUSH 10 ML FLUSH IV FLUSH PRN ×2 (09:00→11:15)
[2017-05-12] MEDS ORDERED: SODIUM CHLOR 0.9% 1000 ML INJ 1,000 ML IV ONE (09:00)
[2017-05-12] MEDS ORDERED: ONDANSETRON HCL 4 MG/2 ML VIAL IVP ONE (09:00)
--- NOTE | 2017-05-12 09:15 | PD ---
HPI Chief Complaint: GI Complaint Time Seen by Provider: 08:55 Travel History International Travel<30 days: No Contact w/Intl Traveler<30days: No Traveled to known affect area: No History of Present Illness HPI 56-year-old female arrives from assisted living facility. She has a history of autism and is nonverbal and also suffers with mental retardation. She has been vomiting at home over the night at least. The EMS crew reports O2 sats in the high 80s upon arrival. The patient's roommate believes she might have had some involuntary movement of the arms overnight raising concern for seizure however the patient has no history of seizures. Patient is known to have discontinued Geodon 6 days prior. The patient is nonverbal thereby limiting history to EMS crew and medical records. PFSH Past Medical History Hx Anticoagulant Therapy: No Autoimmune Disease: No Anxiety: Yes Depression: Yes Cardiovascular Problems: No Chemotherapy: No Cerebrovascular Accident: No Developmental Delay: Yes Diabetes: No Diminished Hearing: No (PT NON-VERBAL) Endocrine: No Genitourinary: Yes (INCONTINENT) Immune Disorder: No Implanted Vascular Access Dvce: No Musculoskeletal: No Neurologic: Yes (AUTISTIC, OCD) Psychiatric: Yes (AUTISM, OBSESSIVE COMPULSIVE) Respiratory: No Immunizations Current: Yes Thyroid Disease: Yes (hypo) PNEUMOCCOCAL Vaccine (Year): 3 Past Surgical History Abdominal Surgery: Yes (CHOLECYSTECTOMY) Cholecystectomy: Yes Gynecologic Surgery: Yes (HYSTERECTOMY) Hysterectomy: Yes Oral Surgery: Yes Other Surgery: Yes Social History Alcohol Use: No Tobacco Use: No Substance Use: No (PATIENT NON VERBAL, HX AUTISM.) Allergies-Medications (Allergen,Severity, Reaction): Coded Allergies: orange (Unverified Allergy, Severe, Itching, 05/12/17) Uncoded Allergies: ORANGE JUICE (Allergy, Severe, Itching, 12/22/08) Reported Meds & Prescriptions Reported Meds & Active Scripts Active Reported Levothyroxine (Levothyroxine Sodium) 125 Mcg Tab 125 Mcg PO DAILY Trazodone (Trazodone HCl) 50 Mg Tab 75 Mg PO HS Zantac (Ranitidine HCl) 300 Mg Tab 300 Mg PO DAILY Zyprexa (Olanzapine) 15 Mg Tab 15 Mg PO HS Mobic (Meloxicam) 15 Mg Tab 15 Mg PO DAILY Lamictal (Lamotrigine) 200 Mg Tab 200 Mg PO BID Lexapro (Escitalopram Oxalate) 20 Mg Tab 20 Mg PO DAILY Benztropine (Benztropine Mesylate) 0.5 Mg Tab 2 Mg PO BID Aspirin Adult Low Strength (Aspirin) 81 Mg Tabdr 81 Mg PO DAILY Review of Systems Except as stated in HPI: all other systems reviewed are Neg General / Constitutional: No: Fever Respiratory: Positive: Shortness of Breath Physical Exam Narrative GENERAL: 56-year-old female, BMI 45, nonverbal, emesis about face about the hair and back of the head SKIN: Warm and dry. HEAD: Atraumatic. Normocephalic. EYES: Pupils equal and round. No scleral icterus. No injection or drainage. ENT: No nasal bleeding or discharge. Mucous membranes pink and moist. NECK: Trachea midline. No JVD. CARDIOVASCULAR: Rate 90s to 110. Regular. RESPIRATORY: No significant tachypnea. The lungs are clear. GASTROINTESTINAL: Soft. No grimacing with palpation. MUSCULOSKELETAL: Extremities without clubbing, cyanosis, or edema. No obvious deformities. No evidence DVT. NEUROLOGICAL: Awake. He nods occasionally to questions. The patient is nonverbal. Patient moves extremities times. No cranial nerve deficit. PSYCHIATRIC: Unable to ascertain Data Data Last Documented VS Vital Signs Date Time Temp Pulse Resp B/P (MAP) Pulse Ox O2 Delivery O2 Flow Rate FiO2 05/12/17 08:57 89 Room Air 05/12/17 08:57 98.3 95 24 143/86 (105) 2.00 Vital signs are reviewed Orders Orders Complete Blood Count With Diff (05/12/17 08:55) Comprehensive Metabolic Panel (05/12/17 08:55) Lipase (05/12/17 08:55) Urinalysis - C+S If Indicated (05/12/17 08:55) Iv Access Insert/Monitor (05/12/17 08:55) Ecg Monitoring (05/12/17 08:55) Oximetry (05/12/17 08:55) Ondansetron Inj (Zofran Inj) (05/12/17 09:00) Sodium Chloride 0.9% Flush (Ns Flush) (05/12/17 09:00) ^ Straight Catheter (05/12/17 08:55) Sodium Chlor 0.9% 1000 Ml Inj (Ns 1000 M (05/12/17 09:00) Urine Culture (05/12/17 09:20) Ceftriaxone Inj (Rocephin Inj) (05/12/17 09:45) Admit Order (Ed Use Only) (05/12/17 ) Vital Signs (Adult) Q4H (05/12/17 10:15) Diet Heart Healthy (05/12/17 Lunch) Activity Bed Rest (05/12/17 10:15) Labs Laboratory Tests Test 05/12/17 09:00 05/12/17 09:20 White Blood Count 10.4 TH/MM3 Red Blood Count 4.78 MIL/MM3 Hemoglobin 13.4 GM/DL Hematocrit 40.0 % Mean Corpuscular Volume 83.6 FL Mean Corpuscular Hemoglobin 28.1 PG Mean Corpuscular Hemoglobin Concent 33.6 % Red Cell Distribution Width 13.4 % Platelet Count 446 TH/MM3 Mean Platelet Volume 7.8 FL Neutrophils (%) (Auto) 89.5 % Lymphocytes (%) (Auto) 6.9 % Monocytes (%) (Auto) 3.4 % Eosinophils (%) (Auto) 0.0 % Basophils (%) (Auto) 0.2 % Neutrophils # (Auto) 9.3 TH/MM3 Lymphocytes # (Auto) 0.7 TH/MM3 Monocytes # (Auto) 0.4 TH/MM3 Eosinophils # (Auto) 0.0 TH/MM3 Basophils # (Auto) 0.0 TH/MM3 CBC Comment DIFF FINAL Differential Comment Blood Urea Nitrogen 22 MG/DL Creatinine 1.13 MG/DL Random Glucose 157 MG/DL Total Protein 7.9 GM/DL Albumin 3.1 GM/DL Calcium Level 8.5 MG/DL Alkaline Phosphatase 103 U/L Aspartate Amino Transf (AST/SGOT) 21 U/L Alanine Aminotransferase (ALT/SGPT) 19 U/L Total Bilirubin 0.6 MG/DL Sodium Level 140 MEQ/L Potassium Level 3.3 MEQ/L Chloride Level 100 MEQ/L Carbon Dioxide Level 29.0 MEQ/L Anion Gap 11 MEQ/L Estimat Glomerular Filtration Rate 49 ML/MIN Lipase 58 U/L Urine Color YELLOW Urine Turbidity HAZY Urine pH 6.5 Urine Specific [place] 1.018 Urine Protein 30 mg/dL Urine Glucose (UA) NEG mg/dL Urine Ketones 10 mg/dL Urine Occult Blood SMALL Urine Nitrite NEG Urine Bilirubin NEG Urine Urobilinogen 2.0 MG/DL Urine Leukocyte Esterase LARGE Urine RBC 9 /hpf Urine WBC /hpf Urine WBC Clumps MANY Urine Squamous Epithelial Cells <1 /hpf Urine Renal Epithelial Cells <1 /hpf Urine Bacteria OCC /hpf Urine Hyaline Casts 4 /lpf Urine Mucus FEW /lpf Microscopic Urinalysis Comment CATH-CULTURE IND MDM Medical Decision Making Medical Screen Exam Complete: Yes Emergency Medical Condition: Yes Medical Record Reviewed: Yes Differential Diagnosis Fever, dehydration, medication withdrawal/side effect, metabolic disarray, UTI, pneumonia Narrative Course EKG shows a sinus rhythm at a rate of 93 normal axis and normal intervals CBC & BMP Diagram 05/12/17 09:00 Total Protein 7.9, Albumin 3.1 L, Calcium Level 8.5, Alkaline Phosphatase 103, Aspartate Amino Transf (AST/SGOT) 21, Alanine Aminotransferase (ALT/SGPT) 19, Total Bilirubin 0.6 Urinalysis shows UTI Because the patient is vomiting because she has a UTI and because patient has developed mild a sling cannot communicate her needs will keep her overnight for IV hydration and antibiotics. d/w FMR, Dr Barker, at 1015AM. Admission under Dr Carr. [place] 1g IV given here. Diagnosis Primary Impression: UTI (urinary tract infection) Qualified Codes: N39.0 - Urinary tract infection, site not specified Additional Impression: Vomiting Qualified Codes: R11.10 - Vomiting, unspecified Admitting Information Admitting Physician Requests: Gil Meyers MD May 12, 2017 09:15
[2017-05-12 09:38] LABS: AUTOMATED NEUTROPHIL # 9.3 TH/MM3 (1.8-7.7); BASOPHIL % 0.2 % (0.0-2.0); HEMOGLOBIN 13.4 GM/DL (11.6-15.3); LYMPH % 6.9 % (9.0-44.0); LYMPHOCYTE # 0.7 TH/MM3 (1.0-4.8); MEAN CELL VOLUME 83.6 FL (80.0-100.0); MEAN CORPUSCULAR HEMOGLOBIN 28.1 PG (27.0-34.0); MEAN CORPUSCULAR HGB CONC 33.6 % (32.0-36.0); MEAN PLATELET VOLUME 7.8 FL (7.0-11.0); MONO % 3.4 % (0.0-8.0); MONOCYTE # 0.4 TH/MM3 (0-0.9); NEUT % 89.5 % (16.0-70.0); PLATELET COUNT 446 TH/MM3 (150-450); RED BLOOD COUNT 4.78 MIL/MM3 (4.00-5.30); RED CELL DISTRIBUTION WIDTH 13.4 % (11.6-17.2); WHITE BLOOD COUNT 10.4 TH/MM3 (4.0-11.0)
[2017-05-12 09:41] LABS: BACTERIA, URINE OCC /hpf; BILIRUBIN, URINE NEG (NEG); BLOOD, URINE SMALL (NEG); GLUCOSE,URINE NEG (NEG); HYALINE CAST, URINE 4 /lpf (RARE); KETONE, URINE 10 mg/dL (NEG); MUCUS URINE FEW /lpf (OCC); NITRITE,URINE NEG (NEG); PH, URINE 6.5 (5.0-8.5); RENAL EPITHELIAL CELLS <1 /hpf; SQUAMOUS EPITHELIAL CELL URINE <1 /hpf (0-5); URINE COLOR YELLOW (YELLW/STRAW); URINE LEUKOCYTE ESTERASE LARGE (NEG); WHITE BLOOD CELL CLUMPS MANY
[2017-05-12] MEDS ORDERED: cefTRIAXone INJ 1,000 MG in SODIUM CHLORIDE 0.9% INJ 100 ML IV ONE (09:45)
[2017-05-12 09:49] LABS: ALBUMIN 3.1 GM/DL (3.4-5.0); AST (GOT) 21 U/L (15-37); BLOOD UREA NITROGEN 22 MG/DL (7-18); CALCIUM 8.5 MG/DL (8.5-10.1); CHLORIDE 100 MEQ/L (98-107); CREATININE 1.13 MG/DL (0.50-1.00); GLOMERULAR FILTRATION RATE 49 ML/MIN (>89); GLUCOSE,RANDOM 157 MG/DL (74-106); LIPASE 58 U/L (73-393); SODIUM (NA) 140 MEQ/L (136-145)
[2017-05-12 09:50] LABS: ALT (GPT) 19 U/L (10-53)
[2017-05-12 09:53] LABS: ALKALINE PHOSPHATASE 103 U/L (45-117); TOTAL BILIRUBIN ADULT 0.6 MG/DL (0.2-1.0); TOTAL PROTEIN 7.9 GM/DL (6.4-8.2)
[2017-05-12] MEDS ORDERED: LACTULOSE SYRUP 20 GM/30 ML CUP PO PRN (11:15)
[2017-05-12] MEDS ORDERED: ACETAMINOPHEN 325 MG TAB PO PRN (11:15)
[2017-05-12] MEDS ORDERED: NALOXONE HCL 0.4 MG/ML AMP IV PUSH PRN (11:15)
[2017-05-12] MEDS ORDERED: SENNOSIDES 8.6 MG TAB PO PRN (11:15)
[2017-05-12] MEDS ORDERED: MAGNESIUM HYDROXIDE SUSP 30 ML CUP PO PRN (11:15)
[2017-05-12] MEDS ORDERED: BISACODYL 10 MG SUPP RECTAL PRN (11:15)
--- NOTE | 2017-05-12 11:20 | HHI.HP ---
HPI Service Family Medicine Primary Care Physician Unknown Admission Diagnosis UTI; Vomiting Diagnoses: International Travel<30 Days: No Contact w/Intl Traveler<30days: No Known Affected Area: No History of Present Illness Patient is a 56-year-old female with past history of autism, hypothyroidism, and anxiety disorder who presents today via EMS due to 1 week of vomiting. It is reported that she is nonverbal. Subjective information obtained via EMR and papers transferred with patient. It is reported that the patient discontinue Geodon on 05/08/17. It is also reported that the patient's roommate, who also suffers from mental disability, reported that they may have witnessed involuntary movement of the patient's arms at some point. No past history of seizures. No report of active vomiting while in the ED. Review of Systems Gastrointestinal: COMPLAINS OF: Vomiting Other Unable to obtain due to patient's inability to communicate Past Family Social History Past Medical History Per documents transported with her: Hypothyroidism Anxiety OCD Autism GERD Past Surgical History Unable to obtain Reported Medications Reported Meds & Active Scripts Active Reported Levothyroxine (Levothyroxine Sodium) 125 Mcg Tab 125 Mcg PO DAILY Trazodone (Trazodone HCl) 50 Mg Tab 75 Mg PO HS Zantac (Ranitidine HCl) 300 Mg Tab 300 Mg PO DAILY Zyprexa (Olanzapine) 15 Mg Tab 15 Mg PO HS Mobic (Meloxicam) 15 Mg Tab 15 Mg PO DAILY Lamictal (Lamotrigine) 200 Mg Tab 200 Mg PO BID Lexapro (Escitalopram Oxalate) 20 Mg Tab 20 Mg PO DAILY Benztropine (Benztropine Mesylate) 0.5 Mg Tab 2 Mg PO BID Aspirin Adult Low Strength (Aspirin) 81 Mg Tabdr 81 Mg PO DAILY Allergies: Coded Allergies: orange (Unverified Allergy, Severe, Itching, 05/12/17) Uncoded Allergies: ORANGE JUICE (Allergy, Severe, Itching, 12/22/08) Family History Unable to obtain Social History Unable to obtain Physical Exam Vital Signs Vital Signs Date Time Temp Pulse Resp B/P (MAP) Pulse Ox O2 Delivery O2 Flow Rate FiO2 05/12/17 08:57 89 Room Air 05/12/17 08:57 98.3 95 24 143/86 (105) 92 Nasal Cannula 2.00 Physical Exam GENERAL: This is a well-nourished, well-developed patient, in no apparent distress. SKIN: No rashes, ecchymoses or lesions. Cool and dry. HEAD: Atraumatic. Normocephalic. No temporal or scalp tenderness. EYES: Pupils equal round and reactive. Extraocular motions intact. No scleral icterus. No injection or drainage. ENT: Nose without bleeding, purulent drainage or septal hematoma. Throat without erythema, tonsillar hypertrophy or exudate. Uvula midline. Airway patent. NECK: Trachea midline. No JVD or lymphadenopathy. Supple, nontender, no meningeal signs. CARDIOVASCULAR: Regular rate and rhythm without murmurs, gallops, or rubs. RESPIRATORY: Clear to auscultation. Breath sounds equal bilaterally. No wheezes , rales, or rhonchi. GASTROINTESTINAL: Abdomen soft, non-tender, nondistended. No hepato-splenomegaly , or palpable masses. No guarding. MUSCULOSKELETAL: Extremities without clubbing, cyanosis, or edema. No joint tenderness, effusion, or edema noted. No calf tenderness. NEUROLOGICAL: Awake and alert. Motor and sensory grossly within normal limits. Unable to assess muscle strength due to patient's condition. Typically does not respond to questions, will occasionally repeat a single word asked to her. Laboratory Laboratory Tests Test 05/12/17 09:00 05/12/17 09:20 White Blood Count 10.4 Red Blood Count 4.78 Hemoglobin 13.4 Hematocrit 40.0 Mean Corpuscular Volume 83.6 Mean Corpuscular Hemoglobin 28.1 Mean Corpuscular Hemoglobin Concent 33.6 Red Cell Distribution Width 13.4 Platelet Count 446 Mean Platelet Volume 7.8 Neutrophils (%) (Auto) 89.5 Lymphocytes (%) (Auto) 6.9 Monocytes (%) (Auto) 3.4 Eosinophils (%) (Auto) 0.0 Basophils (%) (Auto) 0.2 Neutrophils # (Auto) 9.3 Lymphocytes # (Auto) 0.7 Monocytes # (Auto) 0.4 Eosinophils # (Auto) 0.0 Basophils # (Auto) 0.0 CBC Comment DIFF FINAL Differential Comment Blood Urea Nitrogen 22 Creatinine 1.13 Random Glucose 157 Total Protein 7.9 Albumin 3.1 Calcium Level 8.5 Alkaline Phosphatase 103 Aspartate Amino Transf (AST/SGOT) 21 Alanine Aminotransferase (ALT/SGPT) 19 Total Bilirubin 0.6 Sodium Level 140 Potassium Level 3.3 Chloride Level 100 Carbon Dioxide Level 29.0 Anion Gap 11 Estimat Glomerular Filtration Rate 49 Lipase 58 Urine Color YELLOW Urine Turbidity HAZY Urine pH 6.5 Urine Specific [place] 1.018 Urine Protein 30 Urine Glucose (UA) NEG Urine Ketones 10 Urine Occult Blood SMALL Urine Nitrite NEG Urine Bilirubin NEG Urine Urobilinogen 2.0 Urine Leukocyte Esterase LARGE Urine RBC 9 Urine WBC Urine WBC Clumps MANY Urine Squamous Epithelial Cells <1 Urine Renal Epithelial Cells <1 Urine Bacteria OCC Urine Hyaline Casts 4 Urine Mucus FEW Microscopic Urinalysis Comment CATH-CULTURE IND Date/Time Source Procedure Growth Status 05/12/17 09:20 Urine Catheterized Urine Urine Culture Pending Received Result Diagram: 05/12/1789905/12/17899 Caprini VTE Risk Assessment Caprini VTE Risk Assessment: Mod/High Risk (score >= 2) Caprini Risk Assessment Model Point Value = 1 Point Value = 2 Point Value = 3 Point Value = 5 Age 41-60 Minor surgery BMI > 25 kg/m2 Swollen legs Varicose veins or History of unexplained or recurrent spontaneous Oral contraceptives or hormone replacement Sepsis (< 1 month) Serious lung disease, including pneumonia (< 1 month) Abnormal pulmonary function Acute myocardial infarction Congestive heart failure (< 1 month) History of inflammatory bowel disease Medical patient at bed rest Age 61-74 Arthroscopic surgery Major open surgery (> 45 min) Laparoscopic surgery (> 45 min) Malignancy Confined to bed (> 72 hours) Immobilizing plaster cast Central venous access Age >= 75 History of VTE Family history of VTE Factor V Leiden Prothrombin [id number] Lupus anticoagulant Anticardiolipin antibodies Elevated serum homocysteine Heparin-induced thrombocytopenia Other congenital or acquired thrombophilia Stroke (< 1 month) Elective arthroplasty Hip, pelvis, or leg fracture Acute spinal cord injury (< 1 month) Prophylaxis Regimen Total Risk Factor Score Risk Level Prophylaxis Regimen 0-1 Low Early ambulation 2 Moderate Order ONE of the following: *Sequential Compression Device (SCD) *Heparin 5000 units SQ BID 3-4 Higher Order ONE of the following medications: *Heparin 5000 units SQ TID *Enoxaparin/Lovenox 40 mg SQ daily (WT < 150 kg, CrCl > 30 mL/min) *Enoxaparin/Lovenox 30 mg SQ daily (WT < 150 kg, CrCl > 10-29 mL/min) *Enoxaparin/Lovenox 30 mg SQ BID (WT < 150 kg, CrCl > 30 mL/min) AND/OR *Sequential Compression Device (SCD) 5 or more Highest Order ONE of the following medications: *Heparin 5000 units SQ TID (Preferred with Epidurals) *Enoxaparin/Lovenox 40 mg SQ daily (WT < 150 kg, CrCl > 30 mL/min) *Enoxaparin/Lovenox 30 mg SQ daily (WT < 150 kg, CrCl > 10-29 mL/min) *Enoxaparin/Lovenox 30 mg SQ BID (WT < 150 kg, CrCl > 30 mL/min) AND *Sequential Compression Device (SCD) Assessment and Plan Assessment and Plan 56-year-old female with past history of autism, hypothyroidism, and anxiety disorder who presented via EMS due to 1 week of vomiting. Unable to communicate verbally. Afebrile, no leukocytosis, pulse ox in the low 90s with a recent minimum of 89. UTI noted on urine screen. Problem List: (1) UTI (urinary tract infection) ICD Codes: N39.0 - Urinary tract infection, site not specified Status: Acute Plan: UTI noted on urine screen -Rocephin 1000 mg every 24 hours -Monitor for signs of sepsis (2) Vomiting ICD Codes: R11.10 - Vomiting, unspecified Status: Acute Plan: Reported by EMS patient has been vomiting for the past week. -No vomiting observed in hospital at this time -Monitor and replete electrolytes as needed -Maintenance fluids (3) Seizure ICD Codes: R56.9 - Unspecified convulsions Plan: Possible seizure, no history reported at this time although she is currently on Lamictal. Patient's roommate who is reported to be mentally disabled reported some odd arm movement earlier. -Continue to monitor for seizure like activity -Neuro checks Q4 -Low threshold for full neuro workup (4) Autism ICD Codes: F84.0 - Autistic disorder Status: Chronic Plan: Patient with history of autism, mostly nonverbal, who occasionally repeat single words spoken by an interviewer. Reported to have anxiety, OCD. Recently stopped Geodon on 05/18. -Continue home medications -Follow up psychiatry consult for evaluation and recommendations (5) OCD (obsessive compulsive disorder) ICD Codes: F42.9 - Obsessive-compulsive disorder, unspecified Status: Chronic Plan: Patient with history of OCD -Continue patient's home medications (6) FEN Plan: Fluids: -Maintenance fluids Electrolytes: -Monitor replete as needed Nutrition: Nothing by mouth for now, regular diet following swallow evaluation Problem Qualifiers (1) UTI (urinary tract infection): Qualified Codes: N39.0 - Urinary tract infection, site not specified (2) Vomiting: Qualified Codes: R11.10 - Vomiting, unspecified Olivier Dey MD R1 May 12, 2017 11:20
[2017-05-12] MEDS ORDERED: SODIUM CHLOR 0.9% 1000 ML INJ 1,000 ML IV SCH (13:30)
[2017-05-12] MEDS: HEPARIN SODIUM - SQ 10,000 UNITS/ML VIAL SQ SCH (13:33)
[2017-05-12] MEDS: SODIUM CHLOR 0.9% 1000 ML INJ 1,000 ML IV SCH ×2 (13:33→18:40)
[2017-05-12] MEDS ORDERED: LORazepam 2 MG/ML VIAL ONE (14:40)
[2017-05-12] MEDS ORDERED: LORazepam 2 MG/ML VIAL IV PUSH PRN (15:00)
--- NOTE | 2017-05-12 15:01 | RADRPT ---
EXAM DATE/TIME: 05/12/2017 14:52 [facility] COMPARISON: CT BRAIN W/O CONTRAST, February 21, 2017, 11:01. INDICATIONS : Altered mental status, halicat. RADIATION DOSE: 45.13 CTDIvol (mGy) ; Patient motion MEDICAL HISTORY : Autism SURGICAL HISTORY : Cholecystectomy. Hysterectomy. ENCOUNTER: Initial ACUITY: 1 day PAIN SCALE: Non-responsive LOCATION: cranial TECHNIQUE: Multiple contiguous axial images were obtained of the head. Using automated exposure control and adj ustment of the mA and/or kV according to patient size, radiation dose was kept as low as reasonably a chievable to obtain optimal diagnostic quality images. DICOM format image data is available electro nically for review and comparison. FINDINGS: CEREBRUM: The ventricles are normal for age. No evidence of midline shift, mass lesion, hemorrhage or acute in farction. No extra-axial fluid collections are seen. POSTERIOR FOSSA: The cerebellum and brainstem are intact. The 4th ventricle is midline. The cerebellopontine angle i s unremarkable. EXTRACRANIAL: The visualized portion of the orbits is intact. SKULL: The calvaria is intact. No evidence of skull fracture. CONCLUSION: Moderate motion artifact, negative for acute process. Ascencion Borden MD FACR on May 12, 2017 at 14:57 Board Certified Radiologist. This report was verified electronically.
--- NOTE | 2017-05-12 16:35 | PD.CONS ---
History of Present Illness Service Neurology Consult Requested By medical Reason for Consult sz Primary Care Physician Unknown History of Present Illness 56-year-old female with past history of autism, hypothyroidism, and anxiety disorder who presents today via EMS for emesis. pt does not communicate much at baseline and thereby hx limited and obtained from medical chart. ?involuntary movements noted. poor hx. neuro consulted for sz? pt on lamictal for mood stabilization. lives in chronic care facility for years. seen by psych at [facility] [place] 2008 and dx'd with autism with aggressive behaviors. was mute at that time. on antipsychotics and benztropine. this suggests she has involuntary movements/ tremors and is being medicated for them (benztropine). Review of Systems Unable to obtain due to patient's inability to communicate Past Family Social History Past Medical History Hypothyroidism Anxiety OCD Autism GERD Past Surgical History Unable to obtain Reported Medications Reported Meds & Active Scripts Active Reported Levothyroxine (Levothyroxine Sodium) 125 Mcg Tab 125 Mcg PO DAILY Trazodone (Trazodone HCl) 50 Mg Tab 75 Mg PO HS Zantac (Ranitidine HCl) 300 Mg Tab 300 Mg PO DAILY Zyprexa (Olanzapine) 15 Mg Tab 15 Mg PO HS Mobic (Meloxicam) 15 Mg Tab 15 Mg PO DAILY Lamictal (Lamotrigine) 200 Mg Tab 200 Mg PO BID Lexapro (Escitalopram Oxalate) 20 Mg Tab 20 Mg PO DAILY Benztropine (Benztropine Mesylate) 0.5 Mg Tab 2 Mg PO BID Aspirin Adult Low Strength (Aspirin) 81 Mg Tabdr 81 Mg PO DAILY Allergies: Coded Allergies: orange (Unverified Allergy, Severe, Itching, 05/12/17) Uncoded Allergies: ORANGE JUICE (Allergy, Severe, Itching, 12/22/08) Family History Unable to obtain Social History Unable to obtain Review of Systems All other ROS: ROS reviewed as documented in chart Past Family Social History Allergies: Coded Allergies: orange (Unverified Allergy, Severe, Itching, 05/12/17) Uncoded Allergies: ORANGE JUICE (Allergy, Severe, Itching, 12/22/08) Active Ordered Medications Current Medications Medications (Trade) Dose Ordered Sig/Daja Route Start Time Stop Time Status Last Admin (NS Flush) 2 ml UNSCH PRN IV FLUSH 05/12/17 11:15 (NS Flush) 2 ml BID IV FLUSH 05/12/17 21:00 (Tylenol) 650 mg Q4H PRN PO 05/12/17 11:15 (Zofran Inj) 4 mg Q6H PRN IVP 05/12/17 11:15 (Heparin Inj) 5,000 units Q12H SQ 05/12/17 12:00 05/12/17 13:33 (Narcan Inj) 0.4 mg UNSCH PRN IV PUSH 05/12/17 11:15 (Loulou-Colace) 1 tab BID PO 05/12/17 21:00 (Milk Of Magnesia Liq) 30 ml Q12H PRN PO 05/12/17 11:15 (Senokot) 17.2 mg Q12H PRN PO 05/12/17 11:15 (Dulcolax Supp) 10 mg DAILY PRN RECTAL 05/12/17 11:15 (Lactulose Liq) 30 ml DAILY PRN PO 05/12/17 11:15 Ceftriaxone Sodium 1000 mg/ Sodium Chloride 100 ml @ 200 mls/hr Q24H IV 05/13/17 10:00 Sodium Chloride 1,000 ml @ 150 mls/hr Q6H40M IV 05/12/17 12:00 05/12/17 13:33 (LaMICtal) 200 mg DAILY PO 05/13/17 09:00 (Cogentin) 2 mg BID PO 05/12/17 21:00 (Lexapro) 20 mg DAILY PO 05/13/17 09:00 (Synthroid) 125 mcg DAILY PO 05/13/17 09:00 (Mobic) 15 mg DAILY PO 05/13/17 09:00 (ZyPREXA) 15 mg HS PO 05/12/17 21:00 (Desyrel) 75 mg HS PO 05/12/17 21:00 (Pepcid) 20 mg DAILY PO 05/13/17 09:00 (Ativan Inj) 2 mg UNSCH PRN IV PUSH 05/12/17 15:00 05/14/17 14:59 Exam I&O / VS 05/12/17 05/12/17 05/13/17 15:00 23:00 07:00 Intake Total 1000 ml Output Total 350 ml Balance 650 ml Intake IV Total 1000 ml Output Urine Total 350 ml # Voids 1 # Bowel Movements 1 Vital Signs Date Time Temp Pulse Resp B/P (MAP) Pulse Ox O2 Delivery O2 Flow Rate FiO2 05/12/17 16:09 100.0 92 18 142/96 (111) 97 05/12/17 14:51 97 Nasal Cannula 4.00 05/12/17 14:50 97 4.00 05/12/17 11:49 98.6 82 20 134/97 (109) 93 05/12/17 11:45 05/12/17 08:57 89 Room Air 05/12/17 08:57 98.3 95 24 143/86 (105) 92 Nasal Cannula 2.00 Exam Comments alert, not following, not verbal, not following, eomi, face sym, moves head side to side, oneal to gravity, mild increased tone in ue, withdraws to tactile soledad le Review/Management Diagnosis/Plan: (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 on lamictal which should control sz's if at all she was having them- suspect less likely recs eeg lamictal level follow exam (2) Autism ICD Codes: F84.0 - Autistic disorder Status: Chronic (3) OCD (obsessive compulsive disorder) ICD Codes: F42.9 - Obsessive-compulsive disorder, unspecified Status: Chronic (4) Agitation ICD Codes: R45.1 - Restlessness and agitation Status: Chronic Pavan Hamilton MD May 12, 2017 16:35
[2017-05-12] MEDS: SODIUM CHLORIDE 0.9% FLUSH 10 ML FLUSH IV FLUSH SCH (21:00)
--- NOTE | 2017-05-12 21:01 | HHI.PR ---
Addendum to Inpatient Note Addendum Reason: Additional Documentation Additional Information Halicat Note S: Called to a [facility] at 1440. Nursing staff stated they entered the room to clean the patient and noted that the patient was exhibiting seizure-like activity, not responding to verbal commands. Although patient is typically nonverbal she will make eye contact, and appear alert. At the time of the Halic[facility] nursing reports the patient's head went back, would not acknowledge other's in the room, exhibited shaking of the upper body. Shaking ceased after administration of Ativan. O: GENERAL: Patient laying in bed, seizing, not interacting or acknowledging others , defecated in bed SKIN: Warm and dry. HEAD: Atraumatic. Normocephalic. NECK: Trachea midline. No JVD. CARDIOVASCULAR: Regular rate and rhythm. RESPIRATORY: No accessory muscle use. Clear to auscultation. Breath sounds equal bilaterally. Patient initially presented with coarse snoring respirations , O2 saturation was 94% on room air, within minutes the snoring respirations subsided and airway sounded more patent MUSCULOSKELETAL: Jerking movements of upper extremities. No abnormalities noted in lower strep is. NEUROLOGICAL: Neither awake nor alert. Did not acknowledging others in the room during shaking movements. Following shaking movements patient would acknowledge others in the room however would not talk, baseline nonverbal PSYCHIATRIC: Nonverbal A: 56-year-old female past history of autism, hypothyroidism, anxiety who had a Halicat called when she exhibited seizure-like activity. Past history of seizure activity unclear. Seizure observed upon arrival. Seizure aborted with 2 mg dose of Ativan. P: Seizure: -Admit to inpatient -Neuro checks every 4 hours -Placed 2 large-bore IVs for potential future seizures -Stat CT brain without contrast ordered, negative for acute process -Follow up EEG study -Follow-up MRI brain with and without contrast -Ativan 2 mg IV when necessary for seizure-like activity -ABG within normal limits -Neurology consulted, recommended: * EEG * Lamictal level * Suggest could be probable dyskinesias Olivier Dey MD R1 May 12, 2017 21:01
--- NOTE | 2017-05-12 21:36 | MG ---
cc: DEBBIE REDD MD Lab No: [id number] Date: 05/12/2017 Age: 56 Sex: F Race: DATE OF : 1960. 56-year-old female with a history of autism and mental status changes. Frequent eye movement artifact noted. Posterior rhythm showing 4-5 Hz activity 20 to 40 microvolts. Small sharp transient noted temporal region at epoch 27. Moderate artifact off and on during the recording. Head movement and leg movement middle to last part of the EEG, almost uninterpretable. Single lead EKG showing what appears to be sinus rhythm. INTERPRETATION: Mild to moderate encephalopathy with significant myogenic artifact. Clinical correlation. Debbie Redd MD /JCMariama /8:25 PM /9:17 PM
--- NOTE | 2017-05-12 22:30 | EKG ---
Date Performed: 05/12/2017 Time Performed: 09:01:08 PTAGE: 56 years EKG: Sinus rhythm LOW QRS VOLTAGE IN PRECORDIAL LEADS NONSPECIFIC T-WAVE ABNORMALITY BORDERLINE ECG PREVIOUS TRACING : 01/11/2017 19.55 Compared to prior tracing no significant change DOCTOR: Jhonatan Buckner Interpretating Date/Time 05/12/2017 22:29:37
[2017-05-13] VITALS (7 sets, daily range): BP systolic 140–171; BP diastolic 74–99; PULSE 83–93; RESP 18–20; TEMP 97.8–99.7; O2SAT 92–95
[2017-05-13] MEDS: SODIUM CHLOR 0.9% 1000 ML INJ 1,000 ML IV SCH ×4 (01:20→23:01)
[2017-05-13] MEDS: BENZTROPINE MESYLATE 1 MG TAB PO SCH ×3 (01:26→20:02)
[2017-05-13] MEDS: HEPARIN SODIUM - SQ 10,000 UNITS/ML VIAL SQ SCH ×3 (01:26→23:15)
[2017-05-13] MEDS: traZODone HCL 50 MG TAB PO SCH ×2 (01:26→20:02)
[2017-05-13] MEDS: DOCUSATE SODIUM 50 MG/SENNA 8.6 MG TAB PO SCH ×3 (01:27→20:02)
[2017-05-13] MEDS: MELOXICAM 15 MG TAB PO SCH (08:07)
[2017-05-13] MEDS: LEVOTHYROXINE SODIUM 125 MCG TAB PO SCH (08:08)
[2017-05-13] MEDS: lamoTRIgine 100 MG TAB PO SCH (08:08)
[2017-05-13] MEDS: FAMOTIDINE 20 MG TAB PO SCH (08:08)
[2017-05-13] MEDS: ESCITALOPRAM OXALATE 20 MG TAB PO SCH (08:08)
[2017-05-13] MEDS: SODIUM CHLORIDE 0.9% FLUSH 10 ML FLUSH IV FLUSH SCH ×2 (09:19→20:02)
--- NOTE | 2017-05-13 10:18 | PD.PSY.CON ---
Provisional Diagnosis Admission Date May 12, 2017 at 14:49 [place] I. Autism, intermittent explosive disorder History of Present Illness Service Psychiatry Consult Requested By Attending MEdel. Reason for Consult Assessment Primary Care Physician Unknown HPI Patient 56-year-old obese white female admitted to medical service with episodes of emesis. In motor movements. Patient also being seen by neurology at the present time. Review of EMR shows patient had prior contact with psychiatry in 2011. Was seen by Dr. Macias and released back to her care home. Attempts to see patient today with RN. Patient is nonverbal when questioned a fairly loud voice she will briefly look towards me but there is no response. Parent states there is no significant response to him verbally either. Patient showing no explosive or other behavioral issues at this time. At this time I recommend continuation of her psychotropic medications while further medical assessment on investigations occur. The stomach filled patient is not a candidate for the psychiatric unit or [address] [place] [id number]. These are developmental issues. Thanks for the Consult will follow on a when necessary basis Review of Systems ROS Limitations: Altered Mental Status Past Family Social History Coded Allergies: orange (Unverified Allergy, Severe, Itching, 05/12/17) Uncoded Allergies: ORANGE JUICE (Allergy, Severe, Itching, 12/22/08) Reported Medications Levothyroxine (Levothyroxine) 125 Mcg Tab, 125 MCG PO DAILY for Thyroid, #30 TAB 0 Refills 02/21/17 Trazodone (Trazodone) 50 Mg Tab, 75 MG PO HS for Control Depression, #30 TAB 0 Refills 01/11/17 Ranitidine (Zantac) 300 Mg Tab, 300 MG PO DAILY, TAB 0 Refills 01/11/17 Olanzapine (Zyprexa) 15 Mg Tab, 15 MG PO HS, #30 TAB 0 Refills 01/11/17 Meloxicam (Mobic) 15 Mg Tab, 15 MG PO DAILY, TAB 0 Refills 01/11/17 Lamotrigine (Lamictal) 200 Mg Tab, 200 MG PO BID for Control Seizures, #60 TAB 0 Refills 01/11/17 Escitalopram (Lexapro) 20 Mg Tab, 20 MG PO DAILY, #30 TAB 0 Refills 01/11/17 Benztropine (Benztropine) 0.5 Mg Tab, 2 MG PO BID, #60 TAB 0 Refills 01/11/[address] (Aspirin Adult Low Strength) 81 Mg Tabdr, 81 MG PO DAILY, TAB 01/11/17 Discontinued Reported Medications Ziprasidone (Geodon) 60 Mg Cap, 60 MG PO HS, #60 CAP 0 Refills 01/11/17 Discontinued Scripts Bacitracin Topical (Bacitracin Topical) 500 Unit/Gm Oint, 1 APPLIC TOPICAL BID for Infection, #30 GM 0 Refills Prov:Cuca Brown MD 02/21/17 Cephalexin (Keflex) 500 Mg Cap, 500 MG PO Q12H for Infection for 10 Days, #20 CAP 0 Refills Prov:Cuca Brown MD 02/21/17 Current Medications Medications (Trade) Dose Ordered Sig/Daja Route Start Time Stop Time Status Last Admin (NS Flush) 2 ml UNSCH PRN IV FLUSH 05/12/17 11:15 (NS Flush) 2 ml BID IV FLUSH 05/12/17 21:00 05/12/17 21:00 (Tylenol) 650 mg Q4H PRN PO 05/12/17 11:15 (Zofran Inj) 4 mg Q6H PRN IVP 05/12/17 11:15 (Heparin Inj) 5,000 units Q12H SQ 05/12/17 12:00 05/13/17 01:26 (Narcan Inj) 0.4 mg UNSCH PRN IV PUSH 05/12/17 11:15 (Loulou-Colace) 1 tab BID PO 05/12/17 21:00 05/13/17 08:08 (Milk Of Magnesia Liq) 30 ml Q12H PRN PO 05/12/17 11:15 (Senokot) 17.2 mg Q12H PRN PO 05/12/17 11:15 (Dulcolax Supp) 10 mg DAILY PRN RECTAL 05/12/17 11:15 (Lactulose Liq) 30 ml DAILY PRN PO 05/12/17 11:15 Ceftriaxone Sodium 1000 mg/ Sodium Chloride 100 ml @ 200 mls/hr Q24H IV 05/13/17 10:00 Sodium Chloride 1,000 ml @ 150 mls/hr Q6H40M IV 05/12/17 12:00 05/12/17 13:33 (LaMICtal) 200 mg DAILY PO 05/13/17 09:00 05/13/17 08:08 (Cogentin) 2 mg BID PO 05/12/17 21:00 05/13/17 08:08 (Lexapro) 20 mg DAILY PO 05/13/17 09:00 05/13/17 08:08 (Synthroid) 125 mcg DAILY PO 05/13/17 09:00 05/13/17 08:08 (Mobic) 15 mg DAILY PO 05/13/17 09:00 05/13/17 08:07 (ZyPREXA) 15 mg HS PO 05/12/17 21:00 05/13/17 01:59 (Desyrel) 75 mg HS PO 05/12/17 21:00 05/13/17 01:26 (Pepcid) 20 mg DAILY PO 05/13/17 09:00 05/13/17 08:08 (Ativan Inj) 2 mg UNSCH PRN IV PUSH 05/12/17 15:00 05/14/17 14:59 Family Psych History Long history of mental retardation, autism, mutism Social History Appears to be living in a care home Patient's Strengths (min. 2) Patient lives and supportive environment I will access healthcare Physical Exam Please see MedSur assessments Vital Signs Vital Signs Date Time Temp Pulse Resp B/P (MAP) Pulse Ox O2 Delivery O2 Flow Rate FiO2 05/13/17 08:54 98.0 88 20 166/88 (114) 92 05/12/17 14:51 Nasal Cannula 4.00 Lab Results Test 05/12/17 15:00 05/13/17 03:50 Blood Gas Puncture Site LT RADIAL Blood Gas Patient Temperature 98.6 Blood Gas HCO3 23 mmol/L Blood Gas Base Excess -1.4 mmol/L Blood Gas Oxygen Saturation 92 % Arterial Blood pH 7.39 Arterial Blood Partial Pressure CO2 38 mmHg Arterial Blood Partial Pressure O2 72 mmHG Arterial Blood Oxygen Content 15.6 Vol % Arterial Blood Carboxyhemoglobin 1.1 % Arterial Blood Methemoglobin 0.8 % Blood Gas Hemoglobin 12.1 G/DL Oxygen Delivery Device NASAL CANNULA Blood Gas Liter Flow 4 L/M Date/Time Source Procedure Growth Status 05/12/17 09:20 Urine Catheterized Urine Urine Culture Pending Received Mental Status Examination Appearance: Disheveled Consciousness: Lethargic Orientation: Person (does vaguely respond to name) Motor Activity: Other Speech: Other (patient mute) Language: Other (very poor) Fund of Knowledge: Poor Attention and Concentration: Other (very poor) Memory: Impaired Mood: Other (appears restrictive difficult to ascertain due to patient's mental status) Affect: Other (appears somewhat irritable although difficult to ascertain due to patient's mental status) Thought Process & Associations: Other (difficult to ascertain due to patient's mental status and mutism) Hallucination Type: Other (unknown at this time) Delusion Type: None (unknown at this time) Suicidal Ideation: No Suicidal Plan: No Suicidal Intention: No Homicidal Ideation: No Homicidal Plan: No Homicidal Intention: No Insight: Poor Judgment: Poor Mental Status Exam Remarks Very limited exam due to patient's mental status and mutism Assessment & Plan Problem List: (1) Intermittent explosive disorder in adult ICD Codes: F63.81 - Intermittent explosive disorder (2) Autism ICD Codes: F84.0 - Autistic disorder Status: Chronic Assessment & Plan Estimated LOS: days will continue existing psychotropics, continue medical workup assessment and treatment. At this time patient is not a candidate for [facility] order for 4 weeks. Thanks for consult I'll follow on a when necessary basis Discharge Planning To be determined Tushar Philip MD May 13, 2017 10:18
[2017-05-13] MEDS: cefTRIAXone INJ 1,000 MG in SODIUM CHLORIDE 0.9% INJ 100 ML IV SCH (11:16)
[2017-05-13] MEDS: ONDANSETRON HCL 4 MG/2 ML VIAL IVP PRN ×2 (11:27→20:03)
--- NOTE | 2017-05-13 13:20 | HHI.FPPN ---
Subjective Remarks Patient seen and examined today. Continues to be nonverbal. Appears to currently be at baseline mental status, will make eye contact, track interviewer. Nursing reports there has been no further seizure-like activity overnight. They do report that she had thrown up once today. Objective Vitals Vital Signs Date Time Temp Pulse Resp B/P (MAP) Pulse Ox O2 Delivery O2 Flow Rate FiO2 05/13/17 12:21 99.7 83 20 165/75 (105) 93 05/13/17 08:54 98.0 88 20 166/88 (114) 92 05/13/17 04:00 97.8 87 18 153/74 (100) 92 05/13/17 00:00 98.5 86 18 140/99 (113) 95 05/12/17 20:00 98.2 87 18 153/72 (99) 92 05/12/17 17:34 99.6 95 18 185/86 (119) 96 05/12/17 16:09 100.0 92 18 142/96 (111) 97 05/12/17 14:51 97 Nasal Cannula 4.00 05/12/17 14:50 97 4.00 I/O 05/12/17 05/12/17 05/12/17 05/13/17 05/13/17 05/13/17 07:00 15:00 23:00 07:00 15:00 23:00 Intake Total 1000 ml Output Total 350 ml Balance 650 ml Intake IV Total 1000 ml Output Urine Total 350 ml # Voids 1 3 # Bowel Movements 1 1 1 Result Diagram: 05/12/17 0900 05/12/17 0900 Imaging Last [address] 05/12/17 0000 Signed Impressions: Service Date/Time: Friday, May 12, 2017 14:52 - CONCLUSION: Moderate motion artifact, negative for acute process. Ascencion Borden MD FACR Objective Remarks GENERAL: This is a well-nourished, well-developed patient, in no apparent distress. SKIN: No rashes, ecchymoses or lesions. Cool and dry. No sacral ulcer appreciated. HEAD: Atraumatic. Normocephalic. No temporal or scalp tenderness. EYES: Pupils equal round and reactive. Extraocular motions intact. No scleral icterus. No injection or drainage. ENT: Nose without bleeding, purulent drainage or septal hematoma. Throat without erythema, tonsillar hypertrophy or exudate. Uvula midline. Airway patent. NECK: Trachea midline. No JVD or lymphadenopathy. CARDIOVASCULAR: Regular rate and rhythm without murmurs, gallops, or rubs. RESPIRATORY: Clear to auscultation. Breath sounds equal bilaterally. No wheezes , rales, or rhonchi. GASTROINTESTINAL: Abdomen soft, non-tender, nondistended. No hepato-splenomegaly , or palpable masses. No guarding. MUSCULOSKELETAL: Extremities without clubbing, cyanosis, or edema. No joint tenderness, effusion, or edema noted. No calf tenderness. NEUROLOGICAL: Awake and alert. Motor and sensory grossly within normal limits. Unable to assess muscle strength due to patient's condition. Typically does not respond to questions, will occasionally repeat a single word asked to her. A/P Assessment and Plan 56-year-old female with past history of autism, hypothyroidism, and anxiety disorder who presented via EMS due to 1 week of vomiting. Unable to communicate verbally. Afebrile, no leukocytosis, pulse ox in the low 90s with a recent minimum of 89. UTI noted on urine screen. Problem List: (1) UTI (urinary tract infection) ICD Codes: N39.0 - Urinary tract infection, site not specified Status: Acute Plan: UTI noted on urine screen -Rocephin 1000 mg every 24 hours -Monitor for signs of sepsis (2) Vomiting ICD Codes: R11.10 - Vomiting, unspecified Status: Acute Plan: Reported by EMS patient has been vomiting for the past week. -No vomiting observed in hospital at this time -Monitor and replete electrolytes as needed -Maintenance fluids (3) Seizure ICD Codes: R56.9 - Unspecified convulsions Plan: Possible seizure reported prior to admission. Seizure and Halicat called on 05/12. Neurology consulted -Continue to monitor for seizure like activity -Neuro checks Q4 -Low threshold for full neuro workup (4) Autism ICD Codes: F84.0 - Autistic disorder Status: Chronic Plan: Patient with history of autism, mostly nonverbal, who occasionally repeat single words spoken by an interviewer. Reported to have anxiety, OCD. Recently stopped Geodon on 05/18. -Continue home medications -Follow up psychiatry consult for evaluation and recommendations (5) OCD (obsessive compulsive disorder) ICD Codes: F42.9 - Obsessive-compulsive disorder, unspecified Status: Chronic Plan: Patient with history of OCD -Continue patient's home medications (6) FEN Plan: Fluids: -Maintenance fluids Electrolytes: -Monitor replete as needed Nutrition: Nothing by mouth for now, regular diet following swallow evaluation Problem Qualifiers (1) UTI (urinary tract infection): Qualified Codes: N39.0 - Urinary tract infection, site not specified (2) Vomiting: Qualified Codes: R11.10 - Vomiting, unspecified Olivier Dey MD R1 May 13, 2017 13:20
[2017-05-13] MEDS ORDERED: FOSPHENYTOIN SODIUM 500 MG PE/10 ML VIAL IM ONE (13:30)
--- NOTE | 2017-05-13 13:30 | HHI.FPPN ---
Subjective Remarks Patient seen and examined this morning. Patient still nonverbal, appears to be at baseline, will make eye contact and track interviewer. Nursing reports that there was no seizure-like activity overnight. They also report 1 episode of emesis today. Objective Vitals Vital Signs Date Time Temp Pulse Resp B/P (MAP) Pulse Ox O2 Delivery O2 Flow Rate FiO2 05/13/17 12:21 99.7 83 20 165/75 (105) 93 05/13/17 08:54 98.0 88 20 166/88 (114) 92 05/13/17 04:00 97.8 87 18 153/74 (100) 92 05/13/17 00:00 98.5 86 18 140/99 (113) 95 05/12/17 20:00 98.2 87 18 153/72 (99) 92 05/12/17 17:34 99.6 95 18 185/86 (119) 96 05/12/17 16:09 100.0 92 18 142/96 (111) 97 05/12/17 14:51 97 Nasal Cannula 4.00 05/12/17 14:50 97 4.00 I/O 05/12/17 05/12/17 05/12/17 05/13/17 05/13/17 05/13/17 07:00 15:00 23:00 07:00 15:00 23:00 Intake Total 1000 ml Output Total 350 ml Balance 650 ml Intake IV Total 1000 ml Output Urine Total 350 ml # Voids 1 3 # Bowel Movements 1 1 1 Result Diagram: 05/12/17 0900 05/12/17 0900 Objective Remarks GENERAL: This is a well-nourished, well-developed patient, in no apparent distress. SKIN: No rashes, ecchymoses or lesions. Cool and dry. No sacral ulcer appreciated. HEAD: Atraumatic. Normocephalic. No temporal or scalp tenderness. EYES: Pupils equal round and reactive. Extraocular motions intact. No scleral icterus. No injection or drainage. ENT: Nose without bleeding, purulent drainage or septal hematoma. Throat without erythema, tonsillar hypertrophy or exudate. Uvula midline. Airway patent. NECK: Trachea midline. No JVD or lymphadenopathy. CARDIOVASCULAR: Regular rate and rhythm without murmurs, gallops, or rubs. RESPIRATORY: Clear to auscultation. Breath sounds equal bilaterally. No wheezes , rales, or rhonchi. GASTROINTESTINAL: Abdomen soft, non-tender, nondistended. No hepato-splenomegaly , or palpable masses. No guarding. MUSCULOSKELETAL: Extremities without clubbing, cyanosis, or edema. No joint tenderness, effusion, or edema noted. No calf tenderness. NEUROLOGICAL: Awake and alert. Motor and sensory grossly within normal limits. Unable to assess muscle strength due to patient's condition. Typically does not respond to questions, will occasionally repeat a single word asked to her. A/P Assessment and Plan 56-year-old female with past history of autism, hypothyroidism, and anxiety disorder who presented via EMS due to 1 week of vomiting. Unable to communicate verbally. Afebrile, no leukocytosis, pulse ox in the low 90s with a recent minimum of 89. UTI noted on urine screen. Problem List: (1) Seizure ICD Codes: R56.9 - Unspecified convulsions Plan: Possible seizure reported prior to admission. Seizure and Halicat called on 05/12. Neurology consulted. Without seizure since 05/12. -Neuro checks every 4 hours -CT brain without contrast, negative for acute process -EEG shows mild to moderate encephalopathy with significant myogenic artifact -Follow-up MRI brain with and without contrast -Ativan 2 mg IV when necessary for seizure-like activity -ABG within normal limits -Neurology consulted, recommended: * Lamictal level * Suggest could be dyskinesias * IV Cerebyx 1gm (2) UTI (urinary tract infection) ICD Codes: N39.0 - Urinary tract infection, site not specified Status: Acute Plan: UTI noted on urine screen -Rocephin 1000 mg every 24 hours -Monitor for signs of sepsis (3) Vomiting ICD Codes: R11.10 - Vomiting, unspecified Status: Acute Plan: Reported by EMS patient has been vomiting for the past week. -No vomiting observed in hospital at this time -Monitor and replete electrolytes as needed -Maintenance fluids (4) Autism ICD Codes: F84.0 - Autistic disorder Status: Chronic Plan: Patient with history of autism, mostly nonverbal, who occasionally repeat single words spoken by an interviewer. Reported to have anxiety, OCD. Recently stopped Geodon on 05/18. -Continue home medications -Follow up psychiatry consult for evaluation and recommendations (5) OCD (obsessive compulsive disorder) ICD Codes: F42.9 - Obsessive-compulsive disorder, unspecified Status: Chronic Plan: Patient with history of OCD -Continue patient's home medications (6) FEN Plan: Fluids: -Maintenance fluids Electrolytes: -Monitor replete as needed Nutrition: Nothing by mouth for now, regular diet following swallow evaluation Problem Qualifiers (1) UTI (urinary tract infection): Qualified Codes: N39.0 - Urinary tract infection, site not specified (2) Vomiting: Qualified Codes: R11.10 - Vomiting, unspecified Olivier Dey MD R1 May 13, 2017 13:30
[2017-05-13] MEDS ORDERED: FOSPHENYTOIN INJ 1,000 MGPE in SODIUM CHLORIDE 0.9% INJ 100 ML IV ONE (15:00)
[2017-05-13] MEDS ORDERED: GADODIAMIDE PF 287 MG/ML 20 ML VIAL (for RAD MRI) IVCONTRAST ONE (15:09)
--- NOTE | 2017-05-13 15:37 | RADRPT ---
EXAM DATE/TIME: 05/13/2017 14:44 [facility] COMPARISON: CT BRAIN W/O CONTRAST, May 12, 2017, 14:52. INDICATIONS : Seizures. CONTRAST: 20 cc Omniscan (gadodiamide) IV MEDICAL HISTORY : Hypothyroidism. SURGICAL HISTORY : Cholecystectomy. Hysterectomy. ENCOUNTER: Initial ACUITY: 1 day PAIN SCORE: 0/10 LOCATION: cranial TECHNIQUE: Multiplanar, multisequence MRI of the brain was performed both prior to and following the administrat ion of paramagnetic contrast. FINDINGS: CEREBRUM: The ventricles are normal for age. No evidence of midline shift, mass lesion, hemorrhage or acute in farction. No extraaxial fluid collections are seen. The pituitary gland and suprasellar cistern are normal in configuration. WHITE MATTER: No significant signal abnormalities are seen in the white matter. POSTERIOR FOSSA: The cerebellum and brainstem are intact. The 4th ventricle is midline. The cerebellopontine angle is unremarkable. The cerebellar tonsils are normal in position. DIFFUSION IMAGING: No focal areas of restricted diffusion are seen. No evidence of acute infarction. EXTRACRANIAL: The visualized portions of the orbits and paranasal sinuses are unremarkable. POST-CONTRAST: No abnormal areas of parenchymal or dural enhancement. No evidence of blood-brain barrier breakdown. CONCLUSION: Brain MRI within normal limits. Jared Milton MD on May 13, 2017 at 15:33 Board Certified Radiologist. This report was verified electronically.
[2017-05-14] MEDS: SODIUM CHLOR 0.9% 1000 ML INJ 1,000 ML IV SCH ×3 (04:00→17:39)
[2017-05-14 06:48] LABS: HEMATOCRIT 34.3 % (35.0-46.0); HEMOGLOBIN 11.2 GM/DL (11.6-15.3); MEAN CELL VOLUME 84.4 FL (80.0-100.0); MEAN CORPUSCULAR HEMOGLOBIN 27.5 PG (27.0-34.0); MEAN CORPUSCULAR HGB CONC 32.6 % (32.0-36.0); MEAN PLATELET VOLUME 8.1 FL (7.0-11.0); PLATELET COUNT 360 TH/MM3 (150-450); RED BLOOD COUNT 4.07 MIL/MM3 (4.00-5.30); RED CELL DISTRIBUTION WIDTH 13.4 % (11.6-17.2); WHITE BLOOD COUNT 7.5 TH/MM3 (4.0-11.0)
[2017-05-14 07:23] LABS: BICARBONATE 26.8 MEQ/L (21.0-32.0); CALCIUM 7.9 MG/DL (8.5-10.1); CREATININE 0.57 MG/DL (0.50-1.00)
[2017-05-14] MEDS: ESCITALOPRAM OXALATE 20 MG TAB PO SCH (07:56)
[2017-05-14] MEDS: DOCUSATE SODIUM 50 MG/SENNA 8.6 MG TAB PO SCH ×2 (07:56→21:00)
[2017-05-14] MEDS: BENZTROPINE MESYLATE 1 MG TAB PO SCH ×2 (07:56→21:45)
[2017-05-14] MEDS: FAMOTIDINE 20 MG TAB PO SCH (07:56)
[2017-05-14] MEDS: MELOXICAM 15 MG TAB PO SCH (07:57)
[2017-05-14] MEDS: LEVOTHYROXINE SODIUM 125 MCG TAB PO SCH (07:57)
[2017-05-14] MEDS: lamoTRIgine 100 MG TAB PO SCH ×2 (07:57→21:45)
[2017-05-14 08:15] VITALS: BP 143/54; PULSE 77; RESP 20; TEMP 97.8; O2SAT 96
[2017-05-14] MEDS ORDERED: POTASSIUM CHLORIDE 10 MEQ CONTROLLED RELEASE TAB PO ONE (09:00)
[2017-05-14] MEDS: SODIUM CHLORIDE 0.9% FLUSH 10 ML FLUSH IV FLUSH SCH ×2 (09:00→21:00)
--- NOTE | 2017-05-14 09:48 | HHI.FPPN ---
Subjective Remarks Patient seen and examined this morning. No acute events overnight. Afebrile and vital signs stable. No change in neurological status. Months to some commands. Moves extremities spontaneously. Tracts with eye movement. No seizure activity reported. Objective Vitals Vital Signs Date Time Temp Pulse Resp B/P (MAP) Pulse Ox O2 Delivery O2 Flow Rate FiO2 05/14/17 08:15 97.8 77 20 143/54 (83) 96 05/13/17 23:00 99.1 86 20 161/79 (106) 92 05/13/17 20:00 99.2 91 20 171/81 (111) 92 05/13/17 16:05 98.3 93 20 170/88 (115) 93 05/13/17 12:21 99.7 83 20 165/75 (105) 93 I/O 05/13/17 05/13/17 05/13/17 05/14/17 05/14/17 05/14/17 07:00 15:00 23:00 07:00 15:00 23:00 Intake Total 1751 ml Balance 1751 ml Intake IV Total 1751 ml # Voids 3 3 # Bowel Movements 1 0 Result Diagram: 05/14/17 0516 05/14/17 0516 Objective Remarks GENERAL: This is a well-nourished, well-developed patient, in no apparent distress. SKIN: No rashes, ecchymoses or lesions. Cool and dry. EYES: Pupils equal round and reactive. CARDIOVASCULAR: Regular rate and rhythm without murmurs, gallops, or rubs. RESPIRATORY: Coarse breath sounds, crackles in bases GASTROINTESTINAL: Abdomen soft, non-tender, nondistended. MUSCULOSKELETAL: Extremities without clubbing, cyanosis, or edema. NEUROLOGICAL: Awake and alert. Motor and sensory grossly within normal limits. Unable to assess muscle strength due to patient's condition. Non-responding respond to questions, will occasionally repeat a single word asked to her. A/P Assessment and Plan 56-year-old female with past history of autism, hypothyroidism, and anxiety disorder who presented via EMS due to 1 week of vomiting. Unable to communicate verbally. Afebrile, no leukocytosis, pulse ox in the low 90s with a recent minimum of 89. UTI noted on urine screen. Discharge Planning Pending neurology workup and treatment of infection Problem List: (1) Seizure ICD Codes: R56.9 - Unspecified convulsions Plan: Possible seizure reported prior to admission. Seizure and Halicat called on 05/12. Neurology consulted. Without seizure since 05/12. CT brain without contrast, negative for acute process EEG shows mild to moderate encephalopathy with significant myogenic artifact Brain MRI wnl -Neuro checks every 4 hours -Follow-up MRI brain with and without contrast -Ativan 2 mg IV when necessary for seizure-like activity -Neurology consulted, recommended: * Lamictal level pending * Suggest could be dyskinesias * IV Cerebyx 1gm given (05/13) (2) Lung crackles ICD Codes: R09.89 - Other specified symptoms and signs involving the circulatory and respiratory systems Status: Acute Plan: Crackles on lung exam today. History of seizures and vomiting -CXR to rule out aspiration pneumonia -Supplemental O2 as needed (3) UTI (urinary tract infection) ICD Codes: N39.0 - Urinary tract infection, site not specified Status: Acute Plan: UTI noted on urine screen -Rocephin 1000 mg every 24 hours -Monitor for signs of sepsis -Urine culture pending (4) Autism ICD Codes: F84.0 - Autistic disorder Status: Chronic Plan: Patient with history of autism, mostly nonverbal, who occasionally repeat single words spoken by an interviewer. Reported to have anxiety, OCD. Recently stopped Geodon on 05/18. Psych consultation - Continuation of medications, not a candicate for psychiatric unit. Developmental issues -Continue home medications (5) OCD (obsessive compulsive disorder) ICD Codes: F42.9 - Obsessive-compulsive disorder, unspecified Status: Chronic Plan: Patient with history of OCD -Continue patient's home medications (6) FEN Plan: Fluids: -Maintenance fluids Electrolytes: -Monitor replete as needed Nutrition: NPO except meds, swallow consult pending DVT ppx: Heparin 5k q12H Problem Qualifiers (1) UTI (urinary tract infection): Qualified Codes: N39.0 - Urinary tract infection, site not specified Jesús Barker MD, R2 May 14, 2017 09:47
[2017-05-14] MEDS: cefTRIAXone INJ 1,000 MG in SODIUM CHLORIDE 0.9% INJ 100 ML IV SCH (10:14)
[2017-05-14] MEDS: HEPARIN SODIUM - SQ 10,000 UNITS/ML VIAL SQ SCH (11:01)
--- NOTE | 2017-05-14 11:10 | RADRPT ---
EXAM DATE/TIME: 05/14/2017 10:09 [facility] COMPARISON: CHEST SINGLE AP, January 11, 2017, 17:28. INDICATIONS : Short of Breath. MEDICAL HISTORY : Hypothyroidism. SURGICAL HISTORY : Cholecystectomy. Hysterectomy. ENCOUNTER: Subsequent ACUITY: 1 day PAIN SCORE: 0/10 LOCATION: Bilateral chest FINDINGS: Minimal abnormal changes left base. Right lung clear. Heart is minimally enlarged. Lungs are under aerated. CONCLUSION: Lungs under aerated, minimal parenchymal changes left base. There is no failure. Ascencion Borden MD FACR on May 14, 2017 at 11:07 Board Certified Radiologist. This report was verified electronically.
[2017-05-14 12:09] VITALS: BP 148/87; PULSE 86; RESP 20; TEMP 97.7; O2SAT 97
[2017-05-14] MEDS: FOSPHENYTOIN SODIUM 100 MG PE/2 ML VIAL IV SCH (14:00)
[2017-05-14 16:13] VITALS: BP 149/72; PULSE 82; RESP 20; TEMP 98.1; O2SAT 97
[2017-05-14 20:00] VITALS: BP 169/84; PULSE 91; RESP 20; TEMP 97.2; O2SAT 97
[2017-05-14] MEDS: traZODone HCL 50 MG TAB PO SCH (21:45)
[2017-05-14 23:01] LABS: BICARBONATE 27.4 MEQ/L (21.0-32.0); MAGNESIUM 2.2 MG/DL (1.5-2.5)
[2017-05-14 23:33] LABS: CREATININE 0.53 MG/DL (0.50-1.00)
[2017-05-15] VITALS: BP 147/73; PULSE 84; RESP 18; TEMP 98.1; O2SAT 98
[2017-05-15] MEDS: HEPARIN SODIUM - SQ 10,000 UNITS/ML VIAL SQ SCH ×2 (00:29→12:28)
[2017-05-15] MEDS: FOSPHENYTOIN SODIUM 100 MG PE/2 ML VIAL IV SCH (01:49)
[2017-05-15 04:00] VITALS: BP 165/74; PULSE 87; RESP 18; TEMP 98.8; O2SAT 98
[2017-05-15] MEDS: SODIUM CHLOR 0.9% 1000 ML INJ 1,000 ML IV SCH ×4 (05:59→20:00)
[2017-05-15 07:19] LABS: AUTOMATED NEUTROPHIL # 4.6 TH/MM3 (1.8-7.7); BASOPHIL % 0.7 % (0.0-2.0); EOSINOPHIL # 0.3 TH/MM3 (0-0.4); EOSINOPHIL % 4.8 % (0.0-4.0); HEMATOCRIT 34.6 % (35.0-46.0); HEMOGLOBIN 11.2 GM/DL (11.6-15.3); LYMPH % 22.1 % (9.0-44.0); LYMPHOCYTE # 1.5 TH/MM3 (1.0-4.8); MEAN CELL VOLUME 84.2 FL (80.0-100.0); MEAN CORPUSCULAR HEMOGLOBIN 27.3 PG (27.0-34.0); MEAN CORPUSCULAR HGB CONC 32.4 % (32.0-36.0); MEAN PLATELET VOLUME 7.9 FL (7.0-11.0); MONO % 6.4 % (0.0-8.0); MONOCYTE # 0.4 TH/MM3 (0-0.9); PLATELET COUNT 306 TH/MM3 (150-450); RED BLOOD COUNT 4.11 MIL/MM3 (4.00-5.30); RED CELL DISTRIBUTION WIDTH 13.5 % (11.6-17.2); WHITE BLOOD COUNT 6.9 TH/MM3 (4.0-11.0)
[2017-05-15 07:47] LABS: PHENYTOIN (DILANTIN) 7.1 MCG/ML (10.0-20.0)
[2017-05-15 07:59] LABS: BICARBONATE 26.2 MEQ/L (21.0-32.0); CALCIUM 7.8 MG/DL (8.5-10.1); CREATININE 0.64 MG/DL (0.50-1.00)
[2017-05-15 08:41] VITALS: BP 140/85; PULSE 80; RESP 20; TEMP 98.8; O2SAT 97
[2017-05-15] MEDS: cefTRIAXone INJ 1,000 MG in SODIUM CHLORIDE 0.9% INJ 100 ML IV SCH (09:21)
[2017-05-15] MEDS: ESCITALOPRAM OXALATE 20 MG TAB PO SCH (09:22)
[2017-05-15] MEDS: FAMOTIDINE 20 MG TAB PO SCH (09:22)
[2017-05-15] MEDS: MELOXICAM 15 MG TAB PO SCH (09:22)
[2017-05-15] MEDS: BENZTROPINE MESYLATE 1 MG TAB PO SCH ×2 (09:22→22:28)
[2017-05-15] MEDS: LEVOTHYROXINE SODIUM 125 MCG TAB PO SCH (09:22)
[2017-05-15] MEDS: SODIUM CHLORIDE 0.9% FLUSH 10 ML FLUSH IV FLUSH SCH ×2 (09:23→21:00)
[2017-05-15] MEDS: lamoTRIgine 100 MG TAB PO SCH ×2 (09:23→22:28)
[2017-05-15] MEDS: DOCUSATE SODIUM 50 MG/SENNA 8.6 MG TAB PO SCH ×2 (09:23→22:28)
--- NOTE | 2017-05-15 10:13 | HHI.PR ---
Review/Management Diagnosis/Plan: (1) Seizure ICD Codes: R56.9 - Unspecified convulsions Status: Acute Plan: new onset sz? no further events on lamictal and dilantin alb 3.1 dil 7. 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 on lamictal which should control sz's if at all she was having them- suspect less likely (3) Autism ICD Codes: F84.0 - Autistic disorder Status: Chronic (4) OCD (obsessive compulsive disorder) ICD Codes: F42.9 - Obsessive-compulsive disorder, unspecified Status: Chronic (5) Agitation ICD Codes: R45.1 - Restlessness and agitation Status: Chronic Subjective Subjective Comments No acute events reported No headache No chest pain No dyspnea Active Medications Current Medications Medications (Trade) Dose Ordered Sig/Daja Route Start Time Stop Time Status Last Admin (NS Flush) 2 ml UNSCH PRN IV FLUSH 05/12/17 11:15 (NS Flush) 2 ml BID IV FLUSH 05/12/17 21:00 05/15/17 09:23 (Tylenol) 650 mg Q4H PRN PO 05/12/17 11:15 (Zofran Inj) 4 mg Q6H PRN IVP 05/12/17 11:15 05/13/17 20:03 (Heparin Inj) 5,000 units Q12H SQ 05/12/17 12:00 05/15/17 00:29 (Narcan Inj) 0.4 mg UNSCH PRN IV PUSH 05/12/17 11:15 (Loulou-Colace) 1 tab BID PO 05/12/17 21:00 05/15/17 09:23 (Milk Of Magnesia Liq) 30 ml Q12H PRN PO 05/12/17 11:15 (Senokot) 17.2 mg Q12H PRN PO 05/12/17 11:15 (Dulcolax Supp) 10 mg DAILY PRN RECTAL 05/12/17 11:15 (Lactulose Liq) 30 ml DAILY PRN PO 05/12/17 11:15 Ceftriaxone Sodium 1000 mg/ Sodium Chloride 100 ml @ 200 mls/hr Q24H IV 05/13/17 10:00 05/15/17 09:21 Sodium Chloride 1,000 ml @ 150 mls/hr Q6H40M IV 05/12/17 12:00 05/14/17 17:39 (Cogentin) 2 mg BID PO 05/12/17 21:00 05/15/17 09:22 (Lexapro) 20 mg DAILY PO 05/13/17 09:00 05/15/17 09:22 (Synthroid) 125 mcg DAILY PO 05/13/17 09:00 05/15/17 09:22 (Mobic) 15 mg DAILY PO 05/13/17 09:00 05/15/17 09:22 (ZyPREXA) 15 mg HS PO 05/12/17 21:00 05/14/17 21:50 (Desyrel) 75 mg HS PO 05/12/17 21:00 05/14/17 21:45 (Pepcid) 20 mg DAILY PO 05/13/17 09:00 05/15/17 09:22 (LaMICtal) 200 mg BID PO 05/14/17 21:00 05/15/17 09:23 (Cerebyx Inj) 200 mgpe Q12H IV 05/14/17 14:00 05/15/17 01:49 Allergies Allergies Coded Allergies orange (Unverified Allergy, Severe, Itching, 05/12/17) Uncoded Allergies ORANGE JUICE ( Allergy, Severe, Itching, 12/22/08) Review of Systems All other ROS: ROS reviewed as documented in chart Exam I&O / VS Vital Signs Date Time Temp Pulse Resp B/P (MAP) Pulse Ox O2 Delivery O2 Flow Rate FiO2 05/15/17 08:41 98.8 80 20 140/85 (103) 97 05/15/17 04:00 98.8 87 18 165/74 (104) 98 05/15/17 00:00 98.1 84 18 147/73 (97) 98 05/14/17 20:00 97.2 91 20 169/84 (112) 97 05/14/17 16:13 98.1 82 20 149/72 (97) 97 05/14/17 12:09 97.7 86 20 148/87 (107) 97 Exam Comments alert, mumbles 1-2 words, difficulty following motor requests, eomi, calm, face sym, no involuntary movements, oneal to gravity, mild ue rigidity Objective Micro and Labs Laboratory Tests Test 05/14/17 22:00 05/15/17 06:55 Blood Urea Nitrogen 16 13 Creatinine 0.53 0.64 Random Glucose 98 92 Calcium Level 8.0 7.8 Magnesium Level 2.2 Sodium Level 145 144 Potassium Level 4.0 3.5 Chloride Level 112 111 Carbon Dioxide Level 27.4 26.2 Anion Gap 6 7 Estimat Glomerular Filtration Rate 118 95 White Blood Count 6.9 Red Blood Count 4.11 Hemoglobin 11.2 Hematocrit 34.6 Mean Corpuscular Volume 84.2 Mean Corpuscular Hemoglobin 27.3 Mean Corpuscular Hemoglobin Concent 32.4 Red Cell Distribution Width 13.5 Platelet Count 306 Mean Platelet Volume 7.9 Neutrophils (%) (Auto) 66.0 Lymphocytes (%) (Auto) 22.1 Monocytes (%) (Auto) 6.4 Eosinophils (%) (Auto) 4.8 Basophils (%) (Auto) 0.7 Neutrophils # (Auto) 4.6 Lymphocytes # (Auto) 1.5 Monocytes # (Auto) 0.4 Eosinophils # (Auto) 0.3 Basophils # (Auto) 0.0 CBC Comment DIFF FINAL Differential Comment Phenytoin (Dilantin) Level 7.1 Date/Time Source Procedure Growth Status 05/12/17 09:20 Urine Catheterized Urine Urine Culture - Final Lactobacillus Species Complete Pavan Hamilton MD May 15, 2017 10:13
[2017-05-15 11:41] VITALS: BP 157/77; PULSE 79; RESP 20; TEMP 98.4; O2SAT 94
[2017-05-15] MEDS: ONDANSETRON HCL 4 MG/2 ML VIAL IVP PRN ×2 (12:27→17:46)
[2017-05-15] MEDS: PHENYTOIN SODIUM 100 MG CAP PO SCH ×2 (12:27→22:28)
--- NOTE | 2017-05-15 12:53 | HHI.FPPN ---
Subjective Remarks Patient seen and examined this morning. Nonverbal. Alert and tracks interviewer. Appears to be at baseline. Spoke with nursing staff report no vomiting or seizure-like activity overnight. Objective Vitals Vital Signs Date Time Temp Pulse Resp B/P (MAP) Pulse Ox O2 Delivery O2 Flow Rate FiO2 05/15/17 11:41 98.4 79 20 157/77 (103) 94 05/15/17 08:41 98.8 80 20 140/85 (103) 97 05/15/17 04:00 98.8 87 18 165/74 (104) 98 05/15/17 00:00 98.1 84 18 147/73 (97) 98 05/14/17 20:00 97.2 91 20 169/84 (112) 97 05/14/17 16:13 98.1 82 20 149/72 (97) 97 I/O 05/14/17 05/14/17 05/14/17 05/15/17 05/15/17 05/15/17 07:00 15:00 23:00 07:00 15:00 23:00 Intake Total 1751 ml 240 ml 876 ml Balance 1751 ml 240 ml 876 ml Intake Oral 240 ml IV Total 1751 ml 876 ml # Voids 3 3 4 2 # Bowel Movements 0 1 2 Result Diagram: 05/15/1765405/15/17 06 Objective Remarks GENERAL: This is a well-nourished, well-developed patient, in no apparent distress. SKIN: No rashes, ecchymoses or lesions. Cool and dry. EYES: Pupils equal round and reactive. CARDIOVASCULAR: Regular rate and rhythm without murmurs, gallops, or rubs. RESPIRATORY: Coarse breath sounds, crackles in bases GASTROINTESTINAL: Abdomen soft, non-tender, nondistended. MUSCULOSKELETAL: Extremities without clubbing, cyanosis, or edema. NEUROLOGICAL: Awake and alert. Motor and sensory grossly within normal limits. Unable to assess muscle strength due to patient's condition. Non-responding respond to questions, will occasionally repeat a single word asked to her. A/P Assessment and Plan 56-year-old female with past history of autism, hypothyroidism, and anxiety disorder who presented via EMS due to 1 week of vomiting. Unable to communicate verbally. Afebrile, no leukocytosis, pulse ox in the low 90s with a recent minimum of 89. UTI noted on urine screen. Discharge Planning Pending neurology workup and treatment of infection Problem List: (1) Seizure ICD Codes: R56.9 - Unspecified convulsions Status: Acute Plan: Possible seizure reported prior to admission. Seizure and Halicat called on 05/12. Neurology consulted. Without seizure since 05/12. CT brain without contrast, negative for acute process EEG shows mild to moderate encephalopathy with significant myogenic artifact Brain MRI wnl -Neuro checks every 4 hours -Follow-up MRI brain with and without contrast -Ativan 2 mg IV when necessary for seizure-like activity -Neurology consulted, recommended: * Lamictal level pending * Suggest could be dyskinesias * IV Cerebyx 1gm given (05/13) * Consider dilantin 100mg tid (2) Lung crackles ICD Codes: R09.89 - Other specified symptoms and signs involving the circulatory and respiratory systems Status: Acute Plan: Crackles on lung exam today. History of seizures and vomiting -CXR not indicative of pneumonia -Supplemental O2 as needed (3) UTI (urinary tract infection) ICD Codes: N39.0 - Urinary tract infection, site not specified Status: Acute Plan: UTI noted on urine screen -Rocephin 1000 mg every 24 hours -Monitor for signs of sepsis -Urine culture pending (4) Hyperchloremia ICD Codes: E87.8 - Other disorders of electrolyte and fluid balance, not elsewhere classified Plan: Chloride 111 on 03/15. Recent vomiting. Currently without vomiting. -Continue to monitor electrolytes and vomiting (5) Autism ICD Codes: F84.0 - Autistic disorder Status: Chronic Plan: Patient with history of autism, mostly nonverbal, who occasionally repeat single words spoken by an interviewer. Reported to have anxiety, OCD. Recently stopped Geodon on 05/18. Psych consultation - Continuation of medications, not a candicate for psychiatric unit. Developmental issues -Continue home medications (6) OCD (obsessive compulsive disorder) ICD Codes: F42.9 - Obsessive-compulsive disorder, unspecified Status: Chronic Plan: Patient with history of OCD -Continue patient's home medications (7) FEN Plan: Fluids: -Maintenance fluids Electrolytes: -Monitor replete as needed Nutrition: NPO except meds, swallow consult pending DVT ppx: Heparin 5k q12H Problem Qualifiers (1) UTI (urinary tract infection): Qualified Codes: N39.0 - Urinary tract infection, site not specified Olivier Dey MD R1 May 15, 2017 12:53
[2017-05-15 15:46] VITALS: BP 177/78; PULSE 83; RESP 20; TEMP 97.6; O2SAT 95
[2017-05-15 20:58] VITALS: BP 134/73; PULSE 78; RESP 18; TEMP 97.7; O2SAT 98
[2017-05-15] MEDS: traZODone HCL 50 MG TAB PO SCH (22:29)
[2017-05-16] MEDS: HEPARIN SODIUM - SQ 10,000 UNITS/ML VIAL SQ SCH ×3 (00:11→23:46)
[2017-05-16 00:53] VITALS: BP 143/70; PULSE 77; RESP 18; TEMP 98.8; O2SAT 96
[2017-05-16] MEDS: SODIUM CHLOR 0.9% 1000 ML INJ 1,000 ML IV SCH ×2 (03:10→22:23)
[2017-05-16 04:54] LABS: HEMATOCRIT 31.4 % (35.0-46.0); HEMOGLOBIN 10.3 GM/DL (11.6-15.3); MEAN PLATELET VOLUME 7.9 FL (7.0-11.0); PLATELET COUNT 317 TH/MM3 (150-450); RED BLOOD COUNT 3.69 MIL/MM3 (4.00-5.30); RED CELL DISTRIBUTION WIDTH 13.5 % (11.6-17.2); WHITE BLOOD COUNT 5.5 TH/MM3 (4.0-11.0)
[2017-05-16 05:09] LABS: BICARBONATE 27.4 MEQ/L (21.0-32.0); CALCIUM 7.6 MG/DL (8.5-10.1); CREATININE 0.49 MG/DL (0.50-1.00); PHENYTOIN (DILANTIN) 5.6 MCG/ML (10.0-20.0)
[2017-05-16 05:41] VITALS: BP 121/58; PULSE 71; RESP 18; TEMP 97.8; O2SAT 97
--- NOTE | 2017-05-16 07:36 | HHI.PR ---
Review/Management Diagnosis/Plan: (1) Seizure ICD Codes: R56.9 - Unspecified convulsions Status: Acute Plan: new onset sz? 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 on lamictal which should control sz's if at all she was having them- suspect less likely (4) Autism ICD Codes: F84.0 - Autistic disorder Status: Chronic (5) OCD (obsessive compulsive disorder) ICD Codes: F42.9 - Obsessive-compulsive disorder, unspecified Status: Chronic (6) Agitation ICD Codes: R45.1 - Restlessness and agitation Status: Chronic Subjective Subjective Comments No acute events reported Active Medications Current Medications Medications (Trade) Dose Ordered Sig/Daja Route Start Time Stop Time Status Last Admin (NS Flush) 2 ml UNSCH PRN IV FLUSH 05/12/17 11:15 (NS Flush) 2 ml BID IV FLUSH 05/12/17 21:00 05/15/17 09:23 (Tylenol) 650 mg Q4H PRN PO 05/12/17 11:15 (Zofran Inj) 4 mg Q6H PRN IVP 05/12/17 11:15 05/15/17 17:46 (Heparin Inj) 5,000 units Q12H SQ 05/12/17 12:00 05/16/17 00:11 (Narcan Inj) 0.4 mg UNSCH PRN IV PUSH 05/12/17 11:15 (Loulou-Colace) 1 tab BID PO 05/12/17 21:00 05/15/17 22:28 (Milk Of Magnesia Liq) 30 ml Q12H PRN PO 05/12/17 11:15 (Senokot) 17.2 mg Q12H PRN PO 05/12/17 11:15 (Dulcolax Supp) 10 mg DAILY PRN RECTAL 05/12/17 11:15 (Lactulose Liq) 30 ml DAILY PRN PO 05/12/17 11:15 Ceftriaxone Sodium 1000 mg/ Sodium Chloride 100 ml @ 200 mls/hr Q24H IV 05/13/17 10:00 05/15/17 09:21 Sodium Chloride 1,000 ml @ 150 mls/hr Q6H40M IV 05/12/17 12:00 05/16/17 03:10 (Cogentin) 2 mg BID PO 05/12/17 21:00 05/15/17 22:28 (Lexapro) 20 mg DAILY PO 05/13/17 09:00 05/15/17 09:22 (Synthroid) 125 mcg DAILY PO 05/13/17 09:00 05/15/17 09:22 (Mobic) 15 mg DAILY PO 05/13/17 09:00 05/15/17 09:22 (ZyPREXA) 15 mg HS PO 05/12/17 21:00 05/15/17 22:36 (Desyrel) 75 mg HS PO 05/12/17 21:00 05/15/17 22:29 (Pepcid) 20 mg DAILY PO 05/13/17 09:00 05/15/17 09:22 (LaMICtal) 200 mg BID PO 05/14/17 21:00 05/15/17 22:28 (Dilantin) 200 mg BID PO 05/15/17 10:15 05/15/17 22:28 Allergies Allergies Coded Allergies orange (Unverified Allergy, Severe, Itching, 05/12/17) Uncoded Allergies ORANGE JUICE ( Allergy, Severe, Itching, 12/22/08) Review of Systems All other ROS: ROS reviewed as documented in chart Exam I&O / VS Vital Signs Date Time Temp Pulse Resp B/P (MAP) Pulse Ox O2 Delivery O2 Flow Rate FiO2 05/16/17 05:41 97.8 71 18 121/58 (79) 97 05/16/17 00:53 98.8 77 18 143/70 (94) 96 05/15/17 20:58 97.7 78 18 134/73 (93) 98 05/15/17 15:46 97.6 83 20 177/78 (111) 95 05/15/17 11:41 98.4 79 20 157/77 (103) 94 05/15/17 08:41 98.8 80 20 140/85 (103) 97 Exam Comments alert, verbal perseveration, mumbles 1-2 words, difficulty following motor requests, eomi, calm, face sym, no involuntary movements, oneal to gravity, mild ue rigidity Objective Micro and Labs Laboratory Tests Test 05/16/17 04:13 White Blood Count 5.5 Red Blood Count 3.69 Hemoglobin 10.3 Hematocrit 31.4 Mean Corpuscular Volume 85.0 Mean Corpuscular Hemoglobin 28.0 Mean Corpuscular Hemoglobin Concent 33.0 Red Cell Distribution Width 13.5 Platelet Count 317 Mean Platelet Volume 7.9 Blood Urea Nitrogen 8 Creatinine 0.49 Random Glucose 81 Calcium Level 7.6 Sodium Level 144 Potassium Level 3.3 Chloride Level 111 Carbon Dioxide Level 27.4 Anion Gap 6 Estimat Glomerular Filtration Rate 130 Phenytoin (Dilantin) Level 5.6 Date/Time Source Procedure Growth Status 05/12/17 09:20 Urine Catheterized Urine Urine Culture - Final Lactobacillus Species Complete Pavan Hamilton MD May 16, 2017 07:36
[2017-05-16] MEDS ORDERED: CALCIUM CARBONATE 1.25 GM (CA 500 MG) TAB PO ONE (08:00)
[2017-05-16 08:25] VITALS: BP 115/66; PULSE 72; RESP 20; TEMP 98.5; O2SAT 96
[2017-05-16] MEDS ORDERED: POTASSIUM CHLORIDE 10 MEQ CAP PO ONE (08:30)
[2017-05-16] MEDS: DOCUSATE SODIUM 50 MG/SENNA 8.6 MG TAB PO SCH ×2 (09:00→20:39)
[2017-05-16] MEDS: SODIUM CHLORIDE 0.9% FLUSH 10 ML FLUSH IV FLUSH SCH ×2 (09:00→20:38)
--- NOTE | 2017-05-16 10:10 | HHI.FPPN ---
Subjective Remarks Patient seen and examined today. Per discussions with the nurse, pt did have episode of vomiting yesterday after eating. Otherwise, no new concerns per nursing. Pt repeats words stated to her, otherwise no responses. Objective Vitals Vital Signs Date Time Temp Pulse Resp B/P (MAP) Pulse Ox O2 Delivery O2 Flow Rate FiO2 05/16/17 08:25 98.5 72 20 115/66 (82) 96 05/16/17 05:41 97.8 71 18 121/58 (79) 97 05/16/17 00:53 98.8 77 18 143/70 (94) 96 05/15/17 20:58 97.7 78 18 134/73 (93) 98 05/15/17 15:46 97.6 83 20 177/78 (111) 95 05/15/17 11:41 98.4 79 20 157/77 (103) 94 I/O 05/15/17 05/15/17 05/15/17 05/16/17 05/16/17 05/16/17 07:00 15:00 23:00 07:00 15:00 23:00 Intake Total 876 ml 1600 ml Balance 876 ml 1600 ml Intake Oral 600 ml IV Total 876 ml 1000 ml # Voids 2 3 1 2 # Bowel Movements 0 Result Diagram: 05/16/17 0413 05/16/17 041 Objective Remarks GENERAL: This is a well-nourished, well-developed patient, in no apparent distress. SKIN: No rashes, ecchymoses or lesions. Cool and dry. CARDIOVASCULAR: Regular rate and rhythm without murmurs, gallops, or rubs. RESPIRATORY: Coarse breath sounds GASTROINTESTINAL: Abdomen soft, non-tender, nondistended. MUSCULOSKELETAL: Extremities without clubbing, cyanosis, or edema. NEUROLOGICAL: Awake and alert. Motor and sensory grossly within normal limits. Unable to assess muscle strength due to patient's condition. Non-responding respond to questions, will occasionally repeat a single word asked to her. A/P Assessment and Plan 56-year-old female with past history of autism, hypothyroidism, and anxiety disorder who presented via EMS due to 1 week of vomiting. Unable to communicate verbally. Afebrile, no leukocytosis, pulse ox in the low 90s with a recent minimum of 89. UTI noted on urine screen. Discharge Planning Cleared from neurology Pending infection clearance Problem List: (1) Seizure ICD Codes: R56.9 - Unspecified convulsions Status: Acute Plan: Possible seizure reported prior to admission. Seizure and Halicat called on 05/12. Neurology consulted. Without seizure since 05/12. CT brain without contrast, negative for acute process EEG shows mild to moderate encephalopathy with significant myogenic artifact Brain MRI wnl -Neuro checks every 4 hours -Follow-up MRI brain with and without contrast -Ativan 2 mg IV when necessary for seizure-like activity -Neurology consulted, recommended: * Lamictal level pending * Suggest could be dyskinesias * IV Cerebyx 1gm given (05/13) * Dilantin 230mg BID * Cleared from neurology * F/u 1-2 weeks (2) UTI (urinary tract infection) ICD Codes: N39.0 - Urinary tract infection, site not specified Status: Acute Plan: UTI noted on urine screen -Rocephin 1000 mg every 24 hours -Monitor for signs of sepsis -Urine culture: Lactobacillus (3) Hyperchloremia ICD Codes: E87.8 - Other disorders of electrolyte and fluid balance, not elsewhere classified Plan: Chloride 111 on 03/15. Recent vomiting. -Continue to monitor electrolytes and vomiting (4) Autism ICD Codes: F84.0 - Autistic disorder Status: Chronic Plan: Patient with history of autism, mostly nonverbal, who occasionally repeat single words spoken by an interviewer. Reported to have anxiety, OCD. Recently stopped Geodon on 05/18. Psych consultation - Continuation of medications, not a candicate for psychiatric unit. Developmental issues -Continue home medications (5) OCD (obsessive compulsive disorder) ICD Codes: F42.9 - Obsessive-compulsive disorder, unspecified Status: Chronic Plan: Patient with history of OCD -Continue patient's home medications (6) FEN Plan: Fluids: IVF @ 75mls/hr Electrolytes: -Monitor replete as needed Nutrition: mechanical soft, nectar thick liquids DVT ppx: Heparin 5k q12H Problem Qualifiers (1) UTI (urinary tract infection): Qualified Codes: N39.0 - Urinary tract infection, site not specified Jesús Barker MD, R2 May 16, 2017 10:10
[2017-05-16] MEDS: PHENYTOIN SODIUM 30 MG CAP PO SCH ×2 (10:12→20:44)
[2017-05-16] MEDS: PHENYTOIN SODIUM 100 MG CAP PO SCH ×2 (10:13→20:39)
[2017-05-16] MEDS: lamoTRIgine 100 MG TAB PO SCH ×2 (10:14→20:39)
[2017-05-16] MEDS: MELOXICAM 15 MG TAB PO SCH (10:14)
[2017-05-16] MEDS: BENZTROPINE MESYLATE 1 MG TAB PO SCH ×2 (10:14→20:39)
[2017-05-16] MEDS: FAMOTIDINE 20 MG TAB PO SCH (10:14)
[2017-05-16] MEDS: cefTRIAXone INJ 1,000 MG in SODIUM CHLORIDE 0.9% INJ 100 ML IV SCH (10:15)
[2017-05-16] MEDS: LEVOTHYROXINE SODIUM 125 MCG TAB PO SCH (10:15)
[2017-05-16] MEDS: ESCITALOPRAM OXALATE 20 MG TAB PO SCH (10:15)
[2017-05-16 11:24] VITALS: BP 130/63; PULSE 78; RESP 20; TEMP 98; O2SAT 98
[2017-05-16] MEDS: ONDANSETRON HCL 4 MG/2 ML VIAL IVP PRN (13:13)
[2017-05-16 15:41] VITALS: BP 131/75; PULSE 78; RESP 20; TEMP 97.1; O2SAT 94
[2017-05-16] MEDS: traZODone HCL 50 MG TAB PO SCH (20:39)
[2017-05-16 20:41] VITALS: BP 112/72; PULSE 76; RESP 17; TEMP 98.4; O2SAT 97
[2017-05-17] MEDS: SODIUM CHLOR 0.9% 1000 ML INJ 1,000 ML IV SCH (00:49)
[2017-05-17 00:53] VITALS: BP 126/67; PULSE 72; RESP 17; TEMP 98.4; O2SAT 95
[2017-05-17 05:00] VITALS: BP 108/78; PULSE 81; RESP 17; TEMP 98.6; O2SAT 95
[2017-05-17] MEDS: PHENYTOIN SODIUM 30 MG CAP PO SCH ×2 (08:44→20:55)
[2017-05-17] MEDS: PHENYTOIN SODIUM 100 MG CAP PO SCH ×2 (08:45→20:55)
[2017-05-17] MEDS: MELOXICAM 15 MG TAB PO SCH (08:45)
[2017-05-17] MEDS: ESCITALOPRAM OXALATE 20 MG TAB PO SCH (08:45)
[2017-05-17] MEDS: BENZTROPINE MESYLATE 1 MG TAB PO SCH ×2 (08:45→20:55)
[2017-05-17] MEDS: lamoTRIgine 100 MG TAB PO SCH ×2 (08:45→20:55)
[2017-05-17] MEDS: FAMOTIDINE 20 MG TAB PO SCH (08:46)
[2017-05-17] MEDS: LEVOTHYROXINE SODIUM 125 MCG TAB PO SCH (08:46)
[2017-05-17] MEDS: SODIUM CHLORIDE 0.9% FLUSH 10 ML FLUSH IV FLUSH SCH ×2 (08:46→20:55)
[2017-05-17] MEDS: DOCUSATE SODIUM 50 MG/SENNA 8.6 MG TAB PO SCH ×2 (08:46→20:54)
[2017-05-17 08:53] VITALS: BP 139/73; PULSE 69; RESP 16; TEMP 97.4; O2SAT 97
[2017-05-17 10:09] LABS: AUTOMATED NEUTROPHIL # 2.9 TH/MM3 (1.8-7.7); BASOPHIL % 0.7 % (0.0-2.0); EOSINOPHIL # 0.3 TH/MM3 (0-0.4); EOSINOPHIL % 6.6 % (0.0-4.0); HEMATOCRIT 34.3 % (35.0-46.0); LYMPH % 28.6 % (9.0-44.0); LYMPHOCYTE # 1.4 TH/MM3 (1.0-4.8); MEAN CELL VOLUME 84.6 FL (80.0-100.0); MEAN CORPUSCULAR HEMOGLOBIN 27.1 PG (27.0-34.0); MEAN PLATELET VOLUME 7.6 FL (7.0-11.0); MONOCYTE # 0.4 TH/MM3 (0-0.9); NEUT % 57.1 % (16.0-70.0); PLATELET COUNT 308 TH/MM3 (150-450); RED BLOOD COUNT 4.05 MIL/MM3 (4.00-5.30); RED CELL DISTRIBUTION WIDTH 13.5 % (11.6-17.2); WHITE BLOOD COUNT 5.1 TH/MM3 (4.0-11.0)
[2017-05-17 10:40] LABS: BICARBONATE 25.5 MEQ/L (21.0-32.0); CALCIUM 8.1 MG/DL (8.5-10.1); CREATININE 0.48 MG/DL (0.50-1.00); PHENYTOIN (DILANTIN) 6.6 MCG/ML (10.0-20.0)
[2017-05-17] MEDS: HEPARIN SODIUM - SQ 10,000 UNITS/ML VIAL SQ SCH ×2 (11:33→23:47)
[2017-05-17 13:15] VITALS: BP 130/65; PULSE 83; RESP 16; TEMP 98.2; O2SAT 99
--- NOTE | 2017-05-17 14:43 | HHI.FPPN ---
Subjective Remarks Patient seen and examined this morning. Alert, responded with repeating last word of any question asked. Appears to be better than baseline established at admission. Afebrile since admission. Nursing staff reports that she has not had seizure like activity or has vomited in the past 24-36 hours. No acute events overnight. Objective Vitals Vital Signs Date Time Temp Pulse Resp B/P (MAP) Pulse Ox O2 Delivery O2 Flow Rate FiO2 05/17/17 13:15 98.2 83 16 130/65 (86) 99 05/17/17 08:53 97.4 69 16 139/73 (95) 97 05/17/17 05:00 98.6 81 17 108/78 (88) 95 05/17/17 00:53 98.4 72 17 126/67 (86) 95 05/16/17 20:41 98.4 76 17 112/72 (85) 97 05/16/17 15:41 97.1 78 20 131/75 (93) 94 I/O 05/16/17 05/16/17 05/16/17 05/17/17 05/17/17 05/17/17 07:00 15:00 23:00 07:00 15:00 23:00 Intake Total 120 ml 100 ml 2219 ml Balance 120 ml 100 ml 2219 ml Intake Oral 120 ml 120 ml IV Total 100 ml 2099 ml # Voids 2 3 4 # Bowel Movements 0 Result Diagram: 05/17/1791905/17/17919 Objective Remarks GENERAL: This is a well-nourished, well-developed patient, in no apparent distress. SKIN: No rashes, ecchymoses or lesions. Cool and dry. CARDIOVASCULAR: Regular rate and rhythm without murmurs, gallops, or rubs. RESPIRATORY: Clear breath sounds GASTROINTESTINAL: Abdomen soft, non-tender, nondistended. MUSCULOSKELETAL: Extremities without clubbing, cyanosis, or edema. NEUROLOGICAL: Awake and alert. Motor and sensory grossly within normal limits. Unable to assess muscle strength due to patient's condition. Will respond to questions with repeating the last word of the question asked. A/P Assessment and Plan 56-year-old female with past history of autism, hypothyroidism, and anxiety disorder who presented via EMS due to 1 week of vomiting. Unable to communicate verbally. Afebrile, no leukocytosis, pulse ox in the low 90s with a recent minimum of 89. UTI noted on urine screen, lactobacillus grown, likely contamination. No seizure-like activity since day of admission. Discharge Planning Clinically improved, ready to be discharged. Problem List: (1) Seizure ICD Codes: R56.9 - Unspecified convulsions Status: Acute Plan: Possible seizure reported prior to admission. Seizure and Halicat called on 05/12. Neurology consulted. Without seizure since 05/12. CT brain without contrast, negative for acute process EEG shows mild to moderate encephalopathy with significant myogenic artifact Brain MRI wnl -Neuro checks every 4 hours -Brain MRI within normal limits -Ativan 2 mg IV when necessary for seizure-like activity -Neurology consulted, recommended: * Lamictal level pending * Suggest movements could be result of dyskinesias * IV Cerebyx 1gm given (05/13) * Dilantin 230mg BID * Cleared from neurology * F/u 1-2 weeks (2) UTI (urinary tract infection) ICD Codes: N39.0 - Urinary tract infection, site not specified Status: Acute Plan: UTI noted on urine screen, no signs or symptoms of sepsis -Urine culture: Lactobacillus, likely contamination (3) Hyperchloremia ICD Codes: E87.8 - Other disorders of electrolyte and fluid balance, not elsewhere classified Plan: Chloride 109, improving. Recent vomiting. -Continue to monitor electrolytes and vomiting (4) Autism ICD Codes: F84.0 - Autistic disorder Status: Chronic Plan: Patient with history of autism, mostly nonverbal, who occasionally repeat single words spoken by an interviewer. Reported to have anxiety, OCD. Recently stopped Geodon on 05/18. Psych consultation - Continuation of medications, not a candicate for psychiatric unit. Developmental issues -Continue home medications (5) OCD (obsessive compulsive disorder) ICD Codes: F42.9 - Obsessive-compulsive disorder, unspecified Status: Chronic Plan: Patient with history of OCD -Continue patient's home medications (6) FEN Plan: Fluids: IVF @ 75mls/hr Electrolytes: -Monitor replete as needed Nutrition: mechanical soft, nectar thick liquids DVT ppx: Heparin 5k q12H Problem Qualifiers (1) UTI (urinary tract infection): Qualified Codes: N39.0 - Urinary tract infection, site not specified Olivier Dey MD R1 May 17, 2017 14:43
[2017-05-17] MEDS ORDERED: DILA30CA PO (14:49)
[2017-05-17] MEDS ORDERED: DILA100C PO (14:49)
--- NOTE | 2017-05-17 14:49 | HHI.DS ---
Discharge Summary Admission Date May 12, 2017 at 14:49 Admitting Diagnosis UTI; Vomiting (1) Seizure Diagnosis: Principal Plan: Possible seizure reported prior to admission. Seizure and Halicat called on 05/12. Neurology consulted. Without seizure since 05/12. CT brain without contrast, negative for acute process EEG shows mild to moderate encephalopathy with significant myogenic artifact Brain MRI wnl -Neuro checks every 4 hours -Follow-up MRI brain with and without contrast -Ativan 2 mg IV when necessary for seizure-like activity -Neurology consulted, recommended: * Lamictal level pending * Suggest could be dyskinesias * IV Cerebyx 1gm given (05/13) * Dilantin 230mg BID * Cleared from neurology * F/u 1-2 weeks ICD Codes: R56.9 - Unspecified convulsions Status: Acute (2) UTI (urinary tract infection) Diagnosis: Principal Plan: UTI noted on urine screen -Rocephin 1000 mg every 24 hours -Monitor for signs of sepsis -Urine culture: Lactobacillus ICD Codes: N39.0 - Urinary tract infection, site not specified Status: Resolved (3) Hyperchloremia Diagnosis: Secondary Plan: Chloride 111 on 03/15. Recent vomiting. -Continue to monitor electrolytes and vomiting ICD Codes: E87.8 - Other disorders of electrolyte and fluid balance, not elsewhere classified (4) Autism Diagnosis: Secondary Plan: Patient with history of autism, mostly nonverbal, who occasionally repeat single words spoken by an interviewer. Reported to have anxiety, OCD. Recently stopped Geodon on 05/18. Psych consultation - Continuation of medications, not a candicate for psychiatric unit. Developmental issues -Continue home medications ICD Codes: F84.0 - Autistic disorder Status: Chronic (5) OCD (obsessive compulsive disorder) Diagnosis: Secondary Plan: Patient with history of OCD -Continue patient's home medications ICD Codes: F42.9 - Obsessive-compulsive disorder, unspecified Status: Chronic (6) FEN Plan: Fluids: IVF @ 75mls/hr Electrolytes: -Monitor replete as needed Nutrition: mechanical soft, nectar thick liquids DVT ppx: Heparin 5k q12H Brief History Patient is a 56-year-old female with past history of autism, hypothyroidism, and anxiety disorder who presents today via EMS due to 1 week of vomiting. It is reported that she is nonverbal. Subjective information obtained via EMR and papers transferred with patient. It is reported that the patient discontinue Geodon on 05/08/17. It is also reported that the patient's roommate, who also suffers from mental disability, reported that they may have witnessed involuntary movement of the patient's arms at some point. No past history of seizures. No report of active vomiting while in the ED. CBC/BMP: 05/17/17 0920 05/17/17 0920 Significant Findings Laboratory Tests Test 05/14/17 22:00 05/15/17 06:55 05/16/17 04:13 05/17/17 09:20 Calcium Level 8.0 MG/DL (8.5-10.1) 7.8 MG/DL (8.5-10.1) 7.6 MG/DL (8.5-10.1) 8.1 MG/DL (8.5-10.1) Chloride Level 112 MEQ/L (98-107) 111 MEQ/L (98-107) 111 MEQ/L (98-107) 109 MEQ/L (98-107) Hemoglobin 11.2 GM/DL (11.6-15.3) 10.3 GM/DL (11.6-15.3) 11.0 GM/DL (11.6-15.3) Hematocrit 34.6 % (35.0-46.0) 31.4 % (35.0-46.0) 34.3 % (35.0-46.0) Eosinophils (%) (Auto) 4.8 % (0.0-4.0) 6.6 % (0.0-4.0) Phenytoin (Dilantin) Level 7.1 MCG/ML (10.0-20.0) 5.6 MCG/ML (10.0-20.0) 6.6 MCG/ML (10.0-20.0) Red Blood Count 3.69 MIL/MM3 (4.00-5.30) Creatinine 0.49 MG/DL (0.50-1.00) 0.48 MG/DL (0.50-1.00) Potassium Level 3.3 MEQ/L (3.5-5.1) Platelet Morphology Comment CLUMPED (NORMAL) PE at Discharge GENERAL: This is a well-nourished, well-developed patient, in no apparent distress. SKIN: No rashes, ecchymoses or lesions. Cool and dry. CARDIOVASCULAR: Regular rate and rhythm without murmurs, gallops, or rubs. RESPIRATORY: Coarse breath sounds GASTROINTESTINAL: Abdomen soft, non-tender, nondistended. MUSCULOSKELETAL: Extremities without clubbing, cyanosis, or edema. NEUROLOGICAL: Awake and alert. Motor and sensory grossly within normal limits. Unable to assess muscle strength due to patient's condition. Non-responding respond to questions, will occasionally repeat a single word asked to her. Hospital Course Patient was admitted on 05/12 for possible seizure-like activity that day as well as vomiting for one week. Patient had an active seizure later in the day on 05/12, aborted with Ativan, CT/MRI without signs of acute process. Patient was seen to have a possible UTI on day of admission. The culture eventually grew Lactobacillus and antibiotics were stopped. While in hospital the patient received a dose of Cerebyx, and was receiving 230 mg of Dilantin daily in addition to her home medications. The patient continued to vomit for several days while the hospital. On the day of discharge the patient had not had any seizure-like activity since the and had not vomited for 24-36 hours. Pt Condition on Discharge: Stable Discharge Disposition: [facility]PC Discharge Instructions Speech Therapy-Diet Recommends: Mechanical Soft Activities you can perform: Regular-No Restrictions Follow up Referrals: Neurology - 1 Week with Pavan Hamilton MD PCP Follow-up - 1 Week New Orders: PHENYTOIN (DILANTIN) - 1 Week New Medications: Phenytoin Extended (Dilantin) 100 Mg Cap 200 MG PO BID for 30 Days, #120 CAP Phenytoin Extended (Dilantin) 30 Mg Cap 30 MG PO BID for 30 Days, #60 CAP Continued Medications: Aspirin DR (Aspirin Adult Low Strength) 81 Mg Tabdr 81 MG PO DAILY, TAB Benztropine (Benztropine) 0.5 Mg Tab 2 MG PO BID, #60 TAB 0 Refills Escitalopram (Lexapro) 20 Mg Tab 20 MG PO DAILY, #30 TAB 0 Refills Lamotrigine (Lamictal) 200 Mg Tab 200 MG PO BID for Control Seizures, #60 TAB 0 Refills Levothyroxine (Levothyroxine) 125 Mcg Tab 125 MCG PO DAILY for Thyroid, #30 TAB 0 Refills Meloxicam (Mobic) 15 Mg Tab 15 MG PO DAILY, TAB 0 Refills Olanzapine (Zyprexa) 15 Mg Tab 15 MG PO HS, #30 TAB 0 Refills Ranitidine (Zantac) 300 Mg Tab 300 MG PO DAILY, TAB 0 Refills Trazodone (Trazodone) 50 Mg Tab 75 MG PO HS for Control Depression, #30 TAB 0 Refills Olivier Dey MD R1 May 17, 2017 14:49
--- NOTE | 2017-05-17 14:50 | HHI.DCPOC ---
Discharge Care Plan Diagnosis: (1) Seizure (2) UTI (urinary tract infection) Goals to Promote Your Health * To prevent worsening of your condition and complications * To maintain your health at the optimal level Directions to Meet Your Goals Take your medications as prescribed Follow your dietary instruction Follow activity as directed Keep your appointments as scheduled Take your immunizations and boosters as scheduled If your symptoms worsen call your PCP, if no PCP go to Urgent Care Center or Emergency Room Smoking is Dangerous to Your Health. Avoid second hand smoke Call the 24-hour hour crisis hotline for domestic abuse at Olivier Dey MD R1 May 17, 2017 14:50
[2017-05-17 17:32] VITALS: BP 128/72; PULSE 80; RESP 18; TEMP 98.4; O2SAT 99
[2017-05-17 20:30] VITALS: BP 166/78; PULSE 75; RESP 17; TEMP 98.2; O2SAT 94
[2017-05-17] MEDS: traZODone HCL 50 MG TAB PO SCH (20:56)
[2017-05-18] VITALS: BP 152/80; PULSE 72; RESP 17; TEMP 98.3; O2SAT 94
[2017-05-18] MEDS: SODIUM CHLOR 0.9% 1000 ML INJ 1,000 ML IV SCH (01:03)
[2017-05-18 05:00] VITALS: BP 158/86; PULSE 68; RESP 17; TEMP 98.5; O2SAT 95
[2017-05-18 08:08] VITALS: BP 142/84; PULSE 82; RESP 16; TEMP 98.3; O2SAT 95
[2017-05-18] MEDS: SODIUM CHLORIDE 0.9% FLUSH 10 ML FLUSH IV FLUSH SCH (08:33)
[2017-05-18] MEDS: PHENYTOIN SODIUM 100 MG CAP PO SCH (08:33)
[2017-05-18] MEDS: DOCUSATE SODIUM 50 MG/SENNA 8.6 MG TAB PO SCH (08:34)
[2017-05-18] MEDS: ESCITALOPRAM OXALATE 20 MG TAB PO SCH (08:34)
[2017-05-18] MEDS: FAMOTIDINE 20 MG TAB PO SCH (08:34)
[2017-05-18] MEDS: BENZTROPINE MESYLATE 1 MG TAB PO SCH (08:34)
[2017-05-18] MEDS: PHENYTOIN SODIUM 30 MG CAP PO SCH (08:34)
[2017-05-18] MEDS: MELOXICAM 15 MG TAB PO SCH (08:34)
[2017-05-18] MEDS: lamoTRIgine 100 MG TAB PO SCH (08:34)
[2017-05-18] MEDS: LEVOTHYROXINE SODIUM 125 MCG TAB PO SCH (08:34)
== END 2017-05-18 11:15 | DRG 100 ==
LOC: NEPE 08:44 → NEDA 10:17 → NEPHCDU 11:40 → OBSVTOIN 14:49 → N05A 17:13
PROVIDERS: ADMIT Family Medicine; ATTEND Family Medicine
DX: R56.9 Unspecified convulsions (principal); G93.49 Other encephalopathy; G21.19 Other drug induced secondary parkinsonism; E87.8 Other disorders of electrolyte and fluid balance, not elsewhere classified; N39.0 Urinary tract infection, site not specified; F84.0 Autistic disorder; F32.9 Major depressive disorder, single episode, unspecified; R11.10 Vomiting, unspecified; E03.9 Hypothyroidism, unspecified; F42.9 Obsessive-compulsive disorder, unspecified; F41.9 Anxiety disorder, unspecified; F79 Unspecified intellectual disabilities; K21.9 Gastro-esophageal reflux disease without esophagitis; F63.81 Intermittent explosive disorder
CPT/HCPCS: 36600; 70450; 70553; 71010; 76937; 80048; 80053; 80175; 80185; 81001; 82805; 83690; 83735; 85025; 85027; 87086; 93005; 95819; 96361; 96374; A9579; J0696; J1644; J2060; J2405; J7030; P9612; Q2009